=== PATIENT | female | born 1960 ===

== ENCOUNTER → 2020-05-24 15:11 | Outpatient (BNVA) | payer MEDICAID, SELFPAY | PROVIDERS: PCP Family Medicine; Visit Provider Internal Medicine | DX: R05 Cough (principal); J45.909 Unspecified asthma, uncomplicated | CPT/HCPCS: 99212 ==

== ENCOUNTER → 2020-12-25 15:16 | Outpatient (BNVA) | payer MEDICAID, SELFPAY | PROVIDERS: PCP Family Medicine; Visit Provider Internal Medicine | DX: J45.909 Unspecified asthma, uncomplicated (principal) | CPT/HCPCS: 99212 ==

== ENCOUNTER → 2021-08-02 12:53 | Outpatient (BNVA) | payer MEDICAID, SELFPAY | PROVIDERS: PCP Family Medicine; Visit Provider Internal Medicine | DX: J45.40 Moderate persistent asthma, uncomplicated (principal); J44.9 Chronic obstructive pulmonary disease, unspecified; R05.9 Cough, unspecified; Z79.4 Long term (current) use of insulin; Z79.899 Other long term (current) drug therapy | CPT/HCPCS: 99212 ==

== ENCOUNTER 2021-09-17 14:18 | Outpatient (REF) | payer MEDICAID, SELFPAY ==
--- NOTE | ~2021-09-17 | XR_ITS ---
EXAMINATION: XR KNEE, LEFT CLINICAL INFORMATION: Pain in left knee COMPARISON: 03/19/2016 TECHNIQUE: Two views of the left knee. FINDINGS: No acute fracture or dislocation. Joint spaces and articular surfaces are relatively preserved. No joint effusion. Small quadriceps tendon enthesophytes. Soft tissues unremarkable. XR/XR knee LT 2V IMPRESSION: No acute findings. No significant degenerative changes.
== END 2021-09-17 14:19 | disposition home or self-care (01) ==
LOC: HO.XRAY 14:18
PROVIDERS: PCP Family Medicine; Visit Provider Family Medicine
DX: M25.562 Pain in left knee (principal)
CPT/HCPCS: 73560

== ENCOUNTER → 2022-02-27 13:24 | Outpatient (BNVA) | payer MEDICAID, SELFPAY | PROVIDERS: PCP Family Medicine; Visit Provider Internal Medicine | DX: J45.909 Unspecified asthma, uncomplicated (principal); R05.9 Cough, unspecified | CPT/HCPCS: 99212 ==

== ENCOUNTER 2022-10-02 13:48 | Outpatient (REF) | payer MEDICAID, SELFPAY ==
--- NOTE | ~2022-10-02 | US_ITS ---
EXAMINATION: US PELVIS CLINICAL INFORMATION: Follow-up right ovarian cyst; postmenopausal patient. COMPARISON: Pelvic ultrasound dated 10-17. TECHNIQUE: Ultrasound of the pelvis is performed using both transabdominal and transvaginal transducers along with Doppler. Transvaginal imaging is performed due to inadequate visualization transabdominally. FINDINGS: Uterus: The uterus is anteverted and anteflexed. The uterus measures 9.7 x 2.7 x 4.6 cm. Nabothian cysts are seen within the cervix. The double wall endometrial thickness is 6 mm. The uterus is smooth in contour and has normal myometrial echogenicity. No visible fibroid. Adnexa: Both ovaries are visualized. There is normal color flow to the adnexa. There is no ovarian torsion. There is no pelvic ascites or fluid collection. Right ovary measures 4.7 x 3.1 x 2.6 cm, volume 19.8 mL. Exophytic 1.6 cm and 1.4 cm dominant, simple follicles are noted. Left ovary measures 1.5 x 1.2 x 1.0 cm, volume 0.9. US/US pelvic and transvaginal IMPRESSION: 1. Nabothian cysts are seen within the cervix. 2. 1.3 cm and 1.4 cm simple cysts are noted of the right ovary. There is interim resolution of the previously noted 1.8 cm right ovarian cyst with calcifications. These are benign findings, which require no imaging follow-up.
== END 2022-10-02 13:49 | disposition home or self-care (01) ==
LOC: HO.US 13:48
PROVIDERS: PCP Family Medicine; Visit Provider Advanced Practice Midwife
DX: N83.201 Unspecified ovarian cyst, right side (principal)
CPT/HCPCS: 76830; 76856

== ENCOUNTER → 2022-10-08 13:47 | Outpatient (BNVA) | payer MEDICAID, SELFPAY | PROVIDERS: PCP Family Medicine; Visit Provider Internal Medicine | DX: J45.909 Unspecified asthma, uncomplicated (principal); R05.9 Cough, unspecified | CPT/HCPCS: 99212 ==

== ENCOUNTER 2022-10-14 14:54 | Outpatient (REF) | payer MEDICAID, SELFPAY ==
--- NOTE | ~2022-10-14 | MM_ITS ---
EXAMINATION: MM SCREENING DIGITAL BREAST TOMOSYNTHESIS, BILATERAL CLINICAL INFORMATION: Screening. Asymptomatic. The lifetime risk of breast cancer based on the Tyrer-Cuzick Model is 4%. COMPARISON: Mammography: 11/17/2017, 06/20/2015, 06/14/2015 TECHNIQUE: Digital breast tomosynthesis is performed in both the craniocaudal and mediolateral oblique views along with computer-aided detection (CAD). Synthesized 2D images are generated from the tomosynthesis. FINDINGS: There are scattered areas of fibroglandular density (ACR BI-RADS breast composition Category b). Breast tissue density is slightly decreased since prior imaging. Parenchymal pattern is similar to prior studies and there is no developing density or architectural abnormality. The axilla and skin contours are unremarkable. Again, there are scattered bilateral vascular calcifications. Left breast has new grouped probable benign relatively coarse calcifications mid upper outer quadrant. Patient will be recalled to obtain magnification views to fully characterize. MM/MM tomosynthesis screening BI IMPRESSION: Left: -New grouped relatively coarse calcifications mid upper outer quadrant left breast, possibly fibroadenomatous. Right: -No mammographic evidence of malignancy. ASSESSMENT: BI-RADS 0: Incomplete - Need Additional Imaging Evaluation RECOMMENDATION: 1. Additional views left breast (magnification CC, magnification ML). 2. Radiology department staff will contact the patient for additional imaging. This patient's information was entered into a reminder system with a target due date for their next mammogram.
== END 2022-10-14 14:55 | disposition home or self-care (01) ==
LOC: HO.MAMMO 14:54
PROVIDERS: PCP Family Medicine; Visit Provider Advanced Practice Midwife
DX: Z12.31 Encounter for screening mammogram for malignant neoplasm of breast (principal)
CPT/HCPCS: 77063; 77067

== ENCOUNTER 2022-10-18 08:48 | Outpatient (REF) | payer MEDICAID, SELFPAY ==
--- NOTE | ~2022-10-18 | MM_ITS ---
EXAMINATION: MM DIAGNOSTIC DIGITAL MAMMOGRAPHY, LEFT CLINICAL INFORMATION: Calcifications. COMPARISON: Mammography: 10/14/2022 and 11/17/2017 as well as studies dating back to 06/14/2015. TECHNIQUE: Digital mammography is performed in the following views: Spot magnification views of the left breast in craniocaudal and 90 degree mediolateral views. FINDINGS: There are scattered areas of fibroglandular density (ACR BI-RADS breast composition Category b). The calcifications within the upper outer aspect of the left breast appear indeterminate in nature with one grouping having pleomorphic calcifications with question soft tissue density and for which stereotactic core biopsy is recommended. Results are discussed with the patient at time of visit. Report called to referring provider's office by mammography center patient coordinator who spoke to Kimberley. MM/MM added views LT IMPRESSION: Indeterminate calcifications upper outer aspect of the left breast which stereotactic core biopsy is recommended. ASSESSMENT: BI-RADS 4: Suspicious RECOMMENDATION: Stereotactic core biopsy.
== END 2022-10-18 08:49 | disposition home or self-care (01) ==
LOC: HO.MAMMO 08:48
PROVIDERS: Visit Provider Advanced Practice Midwife
DX: R92.1 Mammographic calcification found on diagnostic imaging of breast (principal)
CPT/HCPCS: 77065

== ENCOUNTER 2022-11-01 08:38 | Outpatient (REF) | payer MEDICAID, SELFPAY ==
--- NOTE | ~2022-11-01 | MM_ITS ---
EXAMINATION: STEREOTACTIC TOMOSYNTHESIS-GUIDED VACUUM-ASSISTED BREAST BIOPSY, LEFT SPECIMEN RADIOGRAPH, LEFT POST PROCEDURE DIGITAL MAMMOGRAM, LEFT CLINICAL INFORMATION: New calcifications mid upper outer left breast COMPARISON: Mammography 10/18/2022, 10/14/2022, 11/17/2017 TECHNIQUE/PROCEDURE: Informed consent was obtained from the patient after discussion of the benefits, risks, and alternatives to biopsy today. Patient appeared to understand. Gave opportunity for questions. Patient signed consent form. Hospital provided interpreter for the deaf assisted for the consent and throughout the procedure. BIOPSY TABLE: [employer] Prone Biopsy System. LESION: Calcifications mid upper outer left breast, possibly fibroadenomatous. LOCAL ANESTHESIA: 10 mL carbonated 1% lidocaine; 10 mL 1% lidocaine with epinephrine. DERMATOTOMY: Single skin jorge a dermatotomy performed. NEEDLE: [employer] 9-gauge vacuum assisted core biopsy device. APPROACH: Craniocaudal. TARGETING: Combination of digital breast tomosynthesis and stereotactic digital mammography used for targeting. CORES: 7. CLIP: [employer] T-shaped marker. SPECIMEN RADIOGRAPH: Specimen radiograph is taken in separate room using digital mammography. The index calcifications are in the excised cores. There are over 20 calcifications in the cores. POST PROCEDURE UNILATERAL DIGITAL MAMMOGRAM: The post biopsy mammogram is performed in separate room using separate digital mammography equipment from the biopsy procedure. CC and ML views views are obtained. There are scattered areas of fibroglandular density (breast composition category: b). The clip marker is in position. The calcifications are markedly decreased at the biopsy site. No gross hematoma. The patient tolerated the procedure well. No immediate complications. Home instructions reviewed with the patient. Final pathology results are pending. MM/MM stereotactic biopsy LT IMPRESSION: 1. Digital tomosynthesis-guided core biopsy left breast with clip placement. 2. Specimen radiograph taken and post procedure mammogram. There is satisfactory positioning of the biopsy clip. 3. Final pathology results pending. An addendum report will be issued.
[2022-11-01] MEDS: Lidocaine HCl 1 % 20 ML VIAL 9 ML SUBCUT (10:25)
[2022-11-01] MEDS: Lidocaine HCl 1%/Epi 1:100,000 10 ML VIAL SUBCUT (10:26)
[2022-11-01] MEDS: Sodium Bicarbonate 8.4% 50 MEQ/50 ML VIAL SUBCUT (10:27)
== END 2022-11-01 08:39 | disposition home or self-care (01) ==
LOC: HO.MAMMO 08:38
PROVIDERS: PCP Family Medicine; Visit Provider Surgery
DX: R92.8 Other abnormal and inconclusive findings on diagnostic imaging of breast (principal)
CPT/HCPCS: 19081; 88305; 99202; A4648

== ENCOUNTER → 2022-11-08 10:56 | Outpatient (BNVA) | payer MEDICAID, SELFPAY | PROVIDERS: PCP Family Medicine; Visit Provider Surgery | DX: R92.8 Other abnormal and inconclusive findings on diagnostic imaging of breast (principal); Z98.890 Other specified postprocedural states | CPT/HCPCS: 99212 ==

== ENCOUNTER 2022-11-28 14:27 | Outpatient (REF) | payer MEDICAID, SELFPAY ==
--- NOTE | ~2022-11-28 | US_ITS ---
EXAMINATION: US RETROPERITONEAL LIMITED (RENAL ONLY) CLINICAL INFORMATION: Acute kidney failure. COMPARISON: Ultrasound abdomen limited 09/08/2015. CT abdomen and pelvis 07/15/2015. TECHNIQUE: Real-time imaging of the kidneys. FINDINGS: RIGHT KIDNEY: 9.8 x 3.7 x 4.4 cm (SAG x AP x TRV). The kidney is normal in size, contour, and echogenicity. Renal cortical thickness is normal. No calculi or focal parenchymal lesions. Mild pelviectasis without christopher hydronephrosis. LEFT KIDNEY: 9.5 x 4.1 x 4.0 cm (SAG x AP x TRV). The kidney is normal in size, contour, and echogenicity. Renal cortical thickness is normal. No hydronephrosis. Benign-appearing renal cyst measuring 0.5 cm. No follow up imaging is recommended. 3 mm nonobstructing lower pole renal stone. US/US renal BI IMPRESSION: 1. Mild right pelviectasis without christopher hydronephrosis. 2. 3 mm nonobstructing left lower pole renal stone.
== END 2022-11-28 14:28 | disposition home or self-care (01) ==
LOC: HO.US 14:27
PROVIDERS: PCP Family Medicine; Visit Provider Family Medicine
DX: N17.8 Other acute kidney failure (principal)
CPT/HCPCS: 76775

== ENCOUNTER 2022-12-31 15:40 | Outpatient (REF) | payer MEDICAID, SELFPAY ==
[2022-12-31 17:58] LABS: Alanine Aminotransferase 21 U/L (0-31); Albumin Level 4.6 g/dL (3.5-5.0); Alkaline Phosphatase 79 U/L (39-117); Anion Gap 22 (12-20); Aspartate Amino Transferase 21 U/L (5-31); Bilirubin Total 0.4 mg/dL (0.0-1.0); Blood Urea Nitrogen 47 mg/dL (9-16); Calcium 9.5 mg/dL (8.4-10.2); Carbon Dioxide 20 mmol/L (22-29); Chloride 99 mmol/L (96-108); Estimated Glomerular Filt Rate 21; Glucose Random 94 mg/dL (60-115); Magnesium 1.9 mg/dL (1.6-2.6); Potassium 5.6 mmol/L (3.3-5.1); Sodium 135 mmol/L (135-145); Total Protein 8.4 g/dL (6.5-8.0)
== END 2022-12-31 15:41 | disposition home or self-care (01) ==
LOC: HO.CHCLDS 15:40
PROVIDERS: Visit Provider Family Medicine
DX: I12.9 Hypertensive chronic kidney disease with stage 1 through stage 4 chronic kidney disease, or unspecified chronic kidney disease (principal); N18.9 Chronic kidney disease, unspecified
CPT/HCPCS: 36415; 80053; 83735

== ENCOUNTER 2023-01-14 12:59 | Outpatient (REF) | payer MEDICAID, SELFPAY ==
[2023-01-14 15:26] LABS: Anion Gap 13 (12-20); Blood Urea Nitrogen 16 mg/dL (9-16); Calcium 9.2 mg/dL (8.4-10.2); Carbon Dioxide 26 mmol/L (22-29); Chloride 92 mmol/L (96-108); Estimated Glomerular Filt Rate 34; Glucose Random 193 mg/dL (60-115); Potassium 4.8 mmol/L (3.3-5.1); Sodium 126 mmol/L (135-145)
== END 2023-01-14 13:00 | disposition home or self-care (01) ==
LOC: HO.CHCLNP 12:59
PROVIDERS: Visit Provider Family Medicine
DX: I12.9 Hypertensive chronic kidney disease with stage 1 through stage 4 chronic kidney disease, or unspecified chronic kidney disease (principal); N18.9 Chronic kidney disease, unspecified
CPT/HCPCS: 36415; 80048

== ENCOUNTER 2023-01-15 14:29 | Outpatient (REF) | payer MEDICAID, SELFPAY ==
[2023-01-15 17:41] LABS: MANUAL DIFF FLAG NO
[2023-01-15 17:51] LABS: Basophils Percent Auto 0.5 % (0-2); Eosinophils Absolute Auto 0.1 X10*3/uL (0.0-0.4); Eosinophils Percent Auto 1.2 % (0-4); Hematocrit 30.4 % (37.0-47.0); Imm Gran Abs Auto 0.03 X10*3/uL (0.00-0.03); Imm Gran Pct Auto 0.5 % (0.0-0.4); Lymphocytes Absolute Auto 1.1 X10*3/uL (1.2-4.9); Mean Corpuscular HGB Conc 32.9 g/dl (31.0-35.0); Mean Corpuscular Hemoglobin 29.3 pg (27.0-33.0); Mean Corpuscular Volume 89.1 fL (80.0-98.0); Mean Platelet Volume 9.4 fL (9.4-12.3); Monocytes Absolute Auto 0.3 X10*3/uL (0.1-1.2); Neutrophils Absolute Auto 4.5 x10*3/uL (2.0-8.3); Neutrophils Percent Auto 74.8 % (45-73); Platelet Count 188 X10*3/uL (160-400); Red Blood Count 3.41 X10*6/uL (4.20-5.50); Red Cell Distribution Width 13.5 % (11.0-16.0)
[2023-01-15 17:53] LABS: Prothrombin Time 11.8 SEC (11.1-13.3)
[2023-01-15 17:55] LABS: Partial Thromboplastin Time 35.2 SEC (26.0-36.4)
== END 2023-01-15 14:30 | disposition home or self-care (01) ==
LOC: HO.CHCLDS 14:29
PROVIDERS: Visit Provider General Practice
DX: R23.3 Spontaneous ecchymoses (principal)
CPT/HCPCS: 36415; 85025; 85610; 85730

== ENCOUNTER 2023-04-29 13:12 | Outpatient (AMB) | payer MEDICAID, SELFPAY ==
[2023-04-29 13:26] VITALS: BP 120/60; PULSE 93; O2SAT 98; BMI 37.9
--- NOTE | 2023-04-29 13:26 | A.OFFVIS_ITS ---
Intake Vital Signs 04/29/23 13:26 Height 4 ft 7 in Weight 163 lb BMI 37.9 BP 120/60 Blood Pressure Location Lt brachial Position Sitting Pulse 93 Pulse Source Pulse Oximeter Pulse Oximetry (%) 98 Oxygen Delivery Method Room Air Intake Visit Reasons: COPD Intake Note: pt is here for follow up and states she is starting a cold . Self Sealing Fuel Tank Builder Required: Yes Self Sealing Fuel Tank Builder Name: za Allergies No Known Allergies [No Known Allergies*] Allergy (Verified 04/29/23 13:31) Medication List - Last Reconciled 04/29/23 by José Reyez MD albuterol sulfate 90 mcg/actuation (ProAir HFA) 2 puffs inhalation Q6H PRN 60 days atorvastatin 20 mg PO BEDTIME benzonatate 200 mg PO TID cholecalciferol (vitamin D3) 50 mcg PO DAILY clonazepam 0.25 mg PO BID cyproheptadine 4 mg PO BEDTIME dulaglutide (Trulicity) 0.75 mg subcut QWEEK fluticasone propionate 110 mcg/actuation (Flovent HFA) 2 puffs inhalation BID 30 days furosemide 20 mg PO BID gabapentin 300 mg PO TID hydroxyzine pamoate 25 mg PO TID lactulose 20 grams PO TID lisinopril 2.5 mg PO DAILY loratadine 10 mg PO DAILY metformin 500 mg PO BID sertraline 150 mg PO DAILY spironolactone 25 mg PO BID Do you need a note to return to daycare/school/sports/work: No HPI COPD HPI Details 62 YEARS OLD POLISH-SPEAKING FEMALE HER E FOR FOLLOW-UP AFTER 6 MONTHS. BRONCHIAL ASTHMA HAS REMAINED UNDER GOOD. CONTROL WITHOUT ANY NEW EXACERBATION USES FLOVENT-110 2 PUFFS B.I.D. VERY REGULARLY. AND HAS TO USE ALBUTEROL ONLY ONCE IN A WHILE. LUCKILY SHE HAS HAD NO INFECTION. [facility] Medical History Asthma Cough Surgical History H/O section Family History Son Lung cancer Daughter Pelvic cancer, Onset Age: 23 Social History Alcohol intake: never Patient Tobacco Use Status: Never used Tobacco Female Reproductive History Menstrual Age of Menarche: 12 Review of Systems Const All systems reviewed & are unremarkable except as noted in HPI and below ENT Reports nasal congestion (mild off and on ) and Reports neck pain (mild ) Card Denies chest pain, Denies irregular heart rhythm and Denies leg edema Resp Reports as per HPI GI Reports no additional complaints Musc Reports back pain (mild) and Reports neck pain (mild ) Neuro Reports no additional complaints Psych Reports no additional complaints Physical Exam Const General: comfortable, no acute distress, alert and awake Orientation/consciousness: patient oriented x3 HEENT Head: Yes normal to inspection General nose exam: No nasal polyps present and No nasal discharge present Face and sinus: Yes sinuses nontender Mouth: oropharynx normal Throat: Yes posterior oropharynx normal Eyes General: appearance normal, both eyes and all related structures Neck Neck: Yes normal visual inspection, Yes no lymphadenopathy, Yes trachea midline, Yes torticollis (Moderate, chronic) and Yes no JVD Thyroid: Thyroid normal Chest Chest palpation & inspection: normal inspection of the chest, normal palpation of entire chest wall and no tenderness Resp Other: Percussion note is resonant, she has good breath sounds on both sides, no wheezes or rhonchi are heard. Cardio Palpation: normal PMI Rate: regular rate Rhythm: regular rhythm Heart sounds: no gallops and no murmurs GI Palpation (GI): Soft to palpation, nontender, No hepatosplenomegaly present and no masses Auscultation: normal bowel sounds Back/Spine/Pelvis Thoracic/Lumbar Spine: thoracic and lumbar spine normal to inspection and thoraco-lumbar ROM limited Skin General skin exam: no rashes or lesions noted Neuro General: patient oriented x3 and no focal motor deficits Cranial nerves: Yes CN's II-XII intact bilaterally Extrem General: Yes normal to inspection, Yes no clubbing, cyanosis or edema and Yes no calf tenderness Psych Appearance: grossly normal and well kempt Speech and movement: Normal speech and movement present Assessment & Plan Assessment & Plan (1) Asthma: Comment: Asthma moderate , recurrent , well controlled and has been stable, [place] : FLOVENT-110 2 PUFFS B.I.D. PROAIR HFA 2 PUFFS Q 4-6 HOURS ONLY P.R.N. Scripts are renewed. Code(s): J45.909 - Unspecified asthma, uncomplicated (2) Cough: Comment: Chronic , mild, sec to Asthma Variant , Not very bothersome at present .No need of any cough meds . Code(s): R05 - Cough Medications: Refilled fluticasone propionate 110 mcg/actuation (Flovent HFA) 2 puffs inhalation BID 12 grams 5RF asthma 30 days albuterol sulfate 90 mcg/actuation (ProAir HFA) 2 puffs inhalation Q6H PRN 8.5 grams 2RF asthma 60 days Coding Level of Care Code Est Pt Level 3 (02723) Diagnoses Asthma J45.909 Cough R05
== END 2023-04-29 13:49 | disposition home or self-care (01) ==
PROVIDERS: PCP Family Medicine; Visit Provider Internal Medicine
DX: J45.909 Unspecified asthma, uncomplicated (principal); R05.9 Cough, unspecified
CPT/HCPCS: 99213

== ENCOUNTER → 2023-04-29 13:12 | Outpatient (BNVA) | payer MEDICAID, SELFPAY | PROVIDERS: PCP Family Medicine; Visit Provider Internal Medicine | DX: J45.909 Unspecified asthma, uncomplicated (principal); R05.9 Cough, unspecified | CPT/HCPCS: 99212 ==

== ENCOUNTER 2023-08-14 14:17 | Outpatient (REF) | payer MEDICAID, SELFPAY ==
[2023-08-17 06:44] LABS: TS Negative Control Passed; TS Panel A 0; TS Panel B 1; TS Positive Control Passed; TSpotTB Negative (Negative)
== END 2023-08-14 14:18 | disposition home or self-care (01) ==
LOC: HO.CHCLDS 14:17
PROVIDERS: Visit Provider Family Medicine
DX: Z11.1 Encounter for screening for respiratory tuberculosis (principal)
CPT/HCPCS: 36415; 86481

== ENCOUNTER 2023-10-23 10:02 | Outpatient (AMB) | payer MEDICARE, MEDICAID, SELFPAY ==
[2023-10-23 10:20] VITALS: BP 110/68; PULSE 80; O2SAT 95; BMI 37.7
--- NOTE | 2023-10-23 10:20 | A.OFFVIS_ITS ---
Vital Signs 10/23/23 10:20 Height 4 ft 7 in Weight 162 lb 0.636 oz BMI 37.7 BP 110/68 Blood Pressure Location Lt brachial Position Sitting Pulse 80 Pulse Source Pulse Oximeter Pulse Oximetry (%) 95 Oxygen Delivery Method Room Air Intake Visit Reasons: copd Intake Note: pt is here for follow up and states her breathing is good and feeling well. 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 Required: No Allergies No Known Allergies [No Known Allergies*] Allergy (Verified 10/23/23 10:46) Medication List - Last Reconciled 10/23/23 by José Reyez MD albuterol sulfate 90 mcg/actuation (ProAir HFA) 2 puffs inhalation Q6H PRN 60 days atorvastatin 20 mg PO BEDTIME benzonatate 200 mg PO TID cholecalciferol (vitamin D3) 50 mcg PO DAILY clonazepam 0.25 mg PO BID cyproheptadine 4 mg PO BEDTIME dulaglutide (Trulicity) 0.75 mg subcut QWEEK fluticasone propionate 110 mcg/actuation (Flovent HFA) 2 puffs inhalation BID 30 days furosemide 20 mg PO BID gabapentin 300 mg PO TID hydroxyzine pamoate 25 mg PO TID lactulose 20 grams PO TID lisinopril 2.5 mg PO DAILY loratadine 10 mg PO DAILY metformin 500 mg PO BID sertraline 150 mg PO DAILY spironolactone 25 mg PO BID Do you need a note to return to daycare/school/sports/work: No HPI HPI copd: Details: This 63 years old [place]-speaking female is here for her 6 months follow-up for bronchial asthma 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 Claims that she is feeling fine and does not have any active symptoms. She has only occasional cough or with some wheezing but she gets better by using albuterol. Normally she continues to use her maintenance treatment with Flovent-1102 puffs b.i.d. She has mild intermittent nasal congestion and uses loratadine 10 mg once a day p.r.n.. [facility] Medical History (Updated 10/23/23 @ 10:52 by José Reyez MD) Allergic rhinitis Asthma Cough Surgical History H/O section Family History Son Lung cancer Daughter Pelvic cancer, Onset Age: 23 Social History Alcohol intake: never Patient Tobacco Use Status: Never used Tobacco Female Reproductive History Menstrual Age of Menarche: 12 Review of Systems Const All systems reviewed & are unremarkable except as noted in HPI and below ENT Reports nasal congestion (mild off and on ) and Reports neck pain (mild ) Card Denies chest pain, Denies irregular heart rhythm and Denies leg edema Resp Reports as per HPI GI Reports no additional complaints Musc Reports back pain (mild) and Reports neck pain (mild ) Neuro Reports no additional complaints Psych Reports no additional complaints Physical Exam Vital Signs: Last Vital Signs Pulse 80 10/23/23 10:20 BP 110/68 10/23/23 10:20 Pulse Ox 95 10/23/23 10:20 Oxygen Delivery Method Room Air 10/23/23 10:20 BMI result Body Mass Index 37.7 Const General: comfortable, no acute distress, alert and awake Orientation/consciousness: patient oriented x3 HEENT Head: Yes normal to inspection General nose exam: No nasal polyps present and No nasal discharge present Face and sinus: Yes sinuses nontender Mouth: oropharynx normal Throat: Yes posterior oropharynx normal Eyes General: appearance normal, both eyes and all related structures Neck Neck: Yes normal visual inspection, Yes no lymphadenopathy, Yes trachea midline, Yes torticollis (Moderate, chronic) and Yes no JVD Thyroid: Thyroid normal Chest Chest palpation & inspection: normal inspection of the chest, normal palpation of entire chest wall and no tenderness Resp Other: Percussion note is resonant, she has good breath sounds on both sides, no wheezes or rhonchi are heard. Cardio Palpation: normal PMI Rate: regular rate Rhythm: regular rhythm Heart sounds: no gallops and no murmurs GI Palpation (GI): Soft to palpation, nontender, No hepatosplenomegaly present and no masses Auscultation: normal bowel sounds Back/Spine/Pelvis Thoracic/Lumbar Spine: thoracic and lumbar spine normal to inspection and thoraco-lumbar ROM limited Skin General skin exam: no rashes or lesions noted Neuro General: patient oriented x3 and no focal motor deficits Cranial nerves: Yes CN's II-XII intact bilaterally Extrem General: Yes normal to inspection, Yes no clubbing, cyanosis or edema and Yes no calf tenderness Psych Appearance: grossly normal and well kempt Speech and movement: Normal speech and movement present Assessment & Plan Assessment & Plan (1) Asthma: Comment: Asthma moderate , recurrent , well controlled and has been stable, Code(s): J45.909 - Unspecified asthma, uncomplicated Category: Medical Plan: [place] : FLOVENT-110 2 PUFFS B.I.D. PROAIR HFA 2 PUFFS Q 4-6 HOURS ONLY P.R.N. (2) Allergic rhinitis: Comment: She does have mild intermittent nasal congestion suggesting a very mild allergic rhinitis. This may be the cause of intermittent cough. Code(s): J30.9 - Allergic rhinitis, unspecified Category: Medical Plan: Advise that she can use loratadine 10 mg once a day but only p.r.n. Coding Level of Care Code Est Pt Level 3 (11308) Diagnoses Asthma J45.909 Allergic rhinitis J30.9
== END 2023-10-23 10:47 | disposition home or self-care (01) ==
PROVIDERS: PCP Family Medicine; Visit Provider Internal Medicine
DX: J45.909 Unspecified asthma, uncomplicated (principal); J30.9 Allergic rhinitis, unspecified
CPT/HCPCS: 99213

== ENCOUNTER → 2023-10-23 10:02 | Outpatient (BNVA) | payer MEDICARE, MEDICAID, SELFPAY | PROVIDERS: PCP Family Medicine; Visit Provider Internal Medicine | DX: J45.909 Unspecified asthma, uncomplicated (principal) | CPT/HCPCS: 99212 ==

== ENCOUNTER 2024-04-19 13:48 | Outpatient (AMB) | payer MEDICARE, MEDICAID, SELFPAY ==
[2024-04-19 13:55] VITALS: BP 102/60; PULSE 80; O2SAT 95; BMI 38.3
--- NOTE | 2024-04-19 13:55 | A.OFFVIS_ITS ---
Vital Signs 04/19/24 13:55 Height 4 ft 7 in Weight 165 lb BMI 38.3 BP 102/60 Blood Pressure Location Lt brachial Position Sitting Pulse 80 Pulse Source Pulse Oximeter Pulse Oximetry (%) 95 Oxygen Delivery Method Room Air Intake Visit Reasons: copd Intake Note: pt is here for follow up and states she is good. 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 Allergies No Known Allergies [No Known Allergies*] Allergy (Verified 04/19/24 14:13) Medication List - Last Reconciled 04/19/24 by José Reyez MD albuterol sulfate 90 mcg/actuation (ProAir HFA) 2 puffs inhalation Q6H PRN 60 days atorvastatin 20 mg PO BEDTIME benzonatate 200 mg PO TID cholecalciferol (vitamin D3) 50 mcg PO DAILY clonazepam 0.25 mg PO BID cyproheptadine 4 mg PO BEDTIME dulaglutide (Trulicity) 0.75 mg subcut QWEEK fluticasone propionate 110 mcg/actuation (Flovent HFA) 2 puffs inhalation BID 30 days furosemide 20 mg PO BID gabapentin 300 mg PO TID hydroxyzine pamoate 25 mg PO TID lactulose 20 grams PO TID lisinopril 2.5 mg PO DAILY loratadine 10 mg PO DAILY metformin 500 mg PO BID sertraline 150 mg PO DAILY spironolactone 25 mg PO BID Do you need a note to return to daycare/school/sports/work: No HPI HPI copd: Details: This 63 years old Polish-speaking female, comes after 6 months for follow-up, of her bronchial asthma/allergic rhinitis. She is happy and smiling. According to her CPA, she has very little cough or wheezing. She walks short distances without any shortness of breath. No nasal congestion. Overall feels well [facility] Medical History Allergic rhinitis Asthma Cough Surgical History H/O inguinal hernia repair History of appendectomy H/O left breast biopsy H/O section Family History Son Lung cancer Daughter Pelvic cancer, Onset Age: 23 Social History Alcohol intake: never Patient Tobacco Use Status: Never used Tobacco Female Reproductive History Menstrual Age of Menarche: 12 Review of Systems Const All systems reviewed & are unremarkable except as noted in HPI and below ENT Reports nasal congestion (mild off and on ) and Reports neck pain (mild ) Card Denies chest pain, Denies irregular heart rhythm and Denies leg edema Resp Reports as per HPI GI Reports no additional complaints Musc Reports back pain (mild) and Reports neck pain (mild ) Neuro Reports no additional complaints Psych Reports no additional complaints Physical Exam Vital Signs: Last Vital Signs Pulse 80 04/19/24 13:55 BP 102/60 04/19/24 13:55 Pulse Ox 95 04/19/24 13:55 Oxygen Delivery Method Room Air 04/19/24 13:55 BMI result Body Mass Index 38.3 Const General: comfortable, no acute distress, alert and awake Orientation/consciousness: patient oriented x3 HEENT Head: Yes normal to inspection General nose exam: No nasal polyps present and No nasal discharge present Face and sinus: Yes sinuses nontender Mouth: oropharynx normal Throat: Yes posterior oropharynx normal Eyes General: appearance normal, both eyes and all related structures Neck Neck: Yes normal visual inspection, Yes no lymphadenopathy, Yes trachea midline, Yes torticollis (Moderate, chronic) and Yes no JVD Thyroid: Thyroid normal Chest Chest palpation & inspection: normal inspection of the chest, normal palpation of entire chest wall and no tenderness Resp Other: Percussion note is resonant, she has good breath sounds on both sides, no wheezes or rhonchi are heard. Cardio Palpation: normal PMI Rate: regular rate Rhythm: regular rhythm Heart sounds: no gallops and no murmurs GI Palpation (GI): Soft to palpation, nontender, No hepatosplenomegaly present and no masses Auscultation: normal bowel sounds Back/Spine/Pelvis Thoracic/Lumbar Spine: thoracic and lumbar spine normal to inspection and thoraco-lumbar ROM limited Skin General skin exam: no rashes or lesions noted Neuro General: patient oriented x3 and no focal motor deficits Cranial nerves: Yes CN's II-XII intact bilaterally Extrem General: Yes normal to inspection, Yes no clubbing, cyanosis or edema and Yes no calf tenderness Psych Appearance: grossly normal and well kempt Speech and movement: Normal speech and movement present Assessment & Plan Assessment & Plan (1) Allergic rhinitis: Comment: She does have mild intermittent nasal congestion suggesting a very mild allergic rhinitis. This is well controlled at this time. Code(s): J30.9 - Allergic rhinitis, unspecified Category: Medical Plan: Continue to use loratadine 10 mg once a day but only p.r.n. (2) Asthma: Comment: Asthma moderate , recurrent , well controlled and has been stable, Code(s): J45.909 - Unspecified asthma, uncomplicated Category: Medical Plan: Continue Flovent -110 2 puffs b.i.d. Use albuterol HFA 2 puffs Q 4-6 hours only p.r.n. Coding Level of Care Code Est Pt Level 3 (22141) Diagnoses Allergic rhinitis J30.9 Asthma J45.909
== END 2024-04-19 14:15 | disposition home or self-care (01) ==
PROVIDERS: PCP Family Medicine; Visit Provider Internal Medicine
DX: J30.9 Allergic rhinitis, unspecified (principal); J45.909 Unspecified asthma, uncomplicated
CPT/HCPCS: 99213

== ENCOUNTER → 2024-04-19 13:48 | Outpatient (BNVA) | payer MEDICARE, MEDICAID, SELFPAY | PROVIDERS: PCP Family Medicine; Visit Provider Internal Medicine | DX: J45.909 Unspecified asthma, uncomplicated (principal) | CPT/HCPCS: 99212 ==

== ENCOUNTER 2025-02-10 13:53 | Outpatient (AMB) | payer OTHER, SELFPAY ==
[2025-02-10 13:54] VITALS: BP 127/62; PULSE 84; O2SAT 98; BMI 38.1
--- NOTE | 2025-02-10 13:54 | A.OFFVIS_ITS ---
Vital Signs 02/10/25 13:54 Height 4 ft 7 in Weight 164 lb BMI 38.1 BP 127/62 Blood Pressure Location Lt brachial Position Sitting Pulse 84 Pulse Source Pulse Oximeter Pulse Oximetry (%) 98 Oxygen Delivery Method Room Air Intake Visit Reasons: COPD Intake Note: Patient is here for a follow up on COPD Allergies No Known Allergies (No Known Allergies*) Allergy (Verified 02/10/25 14:10) Medication List - Last Reconciled 02/10/25 by José Reyez MD albuterol sulfate 90 mcg/actuation (ProAir HFA) 2 puffs inhalation Q6H PRN 60 days atorvastatin 20 mg PO BEDTIME benzonatate 200 mg PO TID cholecalciferol (vitamin D3) 50 mcg PO DAILY clonazepam 0.25 mg PO BID cyproheptadine 4 mg PO BEDTIME dulaglutide (Trulicity) 0.75 mg subcut QWEEK fluticasone propionate 110 mcg/actuation (Flovent HFA) 2 puffs inhalation BID 30 days furosemide 20 mg PO BID gabapentin 300 mg PO TID hydroxyzine pamoate 25 mg PO TID lactulose 20 grams PO TID lisinopril 2.5 mg PO DAILY loratadine 10 mg PO DAILY metformin 500 mg PO BID sertraline 150 mg PO DAILY spironolactone 25 mg PO BID Do you need a note to return to daycare/school/sports/work: No HPI HPI COPD: Details: Denae, is 64 years old female with some cognitive impairment and also language issue. 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 Denies any acute cough or wheezing. Continues to use Flovent-1102 puffs b.i.d., according to SIGNS CLEANER she hardly needs to use albuterol. Luckily she has had no acute. Exacerbation in the last 6 months [facility] Medical History Allergic rhinitis Asthma Cough Surgical History H/O inguinal hernia repair History of appendectomy H/O left breast biopsy H/O section Family History Son Lung cancer Daughter Pelvic cancer, Onset Age: 23 Social History Alcohol intake: never Patient Tobacco Use Status: Never used Tobacco Female Reproductive History Menstrual Age of Menarche: 12 Review of Systems Const All systems reviewed & are unremarkable except as noted in HPI and below ENT Reports nasal congestion (mild off and on ) and Reports neck pain (mild ) Card Denies chest pain, Denies irregular heart rhythm and Denies leg edema Resp Reports as per HPI GI Reports no additional complaints Musc Reports back pain (mild) and Reports neck pain (mild ) Neuro Reports no additional complaints Psych Reports no additional complaints Physical Exam Vital Signs: Last Vital Signs Pulse 84 02/10/25 13:54 BP 127/62 02/10/25 13:54 Pulse Ox 98 02/10/25 13:54 Oxygen Delivery Method Room Air 02/10/25 13:54 BMI result Body Mass Index 38.1 Const General: comfortable, no acute distress, alert and awake Orientation/consciousness: patient oriented x3 HEENT Head: Yes normal to inspection General nose exam: No nasal polyps present and No nasal discharge present Face and sinus: Yes sinuses nontender Mouth: oropharynx normal Throat: Yes posterior oropharynx normal Eyes General: appearance normal, both eyes and all related structures Neck Neck: Yes normal visual inspection, Yes no lymphadenopathy, Yes trachea midline, Yes torticollis (Moderate, chronic) and Yes no JVD Thyroid: Thyroid normal Chest Chest palpation & inspection: normal inspection of the chest, normal palpation of entire chest wall and no tenderness Resp Other: Percussion note is resonant, she has good breath sounds on both sides, no wheezes or rhonchi are heard. Cardio Palpation: normal PMI Rate: regular rate Rhythm: regular rhythm Heart sounds: no gallops and no murmurs GI Palpation (GI): Soft to palpation, nontender, No hepatosplenomegaly present and no masses Auscultation: normal bowel sounds Back/Spine/Pelvis Thoracic/Lumbar Spine: thoracic and lumbar spine normal to inspection and thoraco-lumbar ROM limited Skin General skin exam: no rashes or lesions noted Neuro General: patient oriented x3 and no focal motor deficits Cranial nerves: Yes CN's II-XII intact bilaterally Extrem General: Yes normal to inspection, Yes no clubbing, cyanosis or edema and Yes no calf tenderness Psych Appearance: grossly normal and well kempt Speech and movement: Normal speech and movement present Assessment & Plan Assessment & Plan (1) Cough: Comment: Chronic , mild, sec to Asthma Variant , Not very bothersome at present .No need of any cough meds . Code(s): R05 - Cough Category: Medical Plan: No need of any cough medicine. She does have benzonatate it Perles 200 mg to be used t.i.d. p.r.n.. (2) Asthma: Comment: Asthma moderate , recurrent , well controlled and has been stable, Code(s): J45.909 - Unspecified asthma, uncomplicated Category: Medical Plan: Continue using Flovent-1102 puffs b.i.d. And albuterol HFA 2 puffs Q 6 hours p.r.n. (3) Allergic rhinitis: Comment: She does have mild intermittent nasal congestion suggesting a very mild allergic rhinitis. This is well controlled at this time. Code(s): J30.9 - Allergic rhinitis, unspecified Category: Medical Plan: May use OTC antihistaminic agents such as loratadine 10 mg once a day but only p.r.n. Coding Level of Care Code Est Pt Level 3 (79037) Diagnoses Cough R05 Asthma J45.909 Allergic rhinitis J30.9
--- OUTSIDE RECORDS SUMMARY | 2025-02-10 17:46 | XMS_ITS | Encounter Summary ---
Author Organization [employer] Address [address] [place] [address] [address] [place] [address] Care Team Providers Care Senior Environmental Consultant Name Role Phone Carmela Landeros MD Primary Care Provider [phone] Reason for Visit * Reason Comments Med Refill Encounter Details Date Type Department Care Team ([facility] st Contact Info) Description 01/24/2025 Refill [facility] PEDS [address] [place], [place] [id number] Jon Camp MD [address] [place] [address] Social History Tobacco Use Types Packs/Day Years Used Date Smoking Tobacco: Every Day Cigarettes Passive Smoke Exposure: Never Smokeless Tobacco: Former Alcohol Use Standard Drinks/Week Comments Not Currently 0 (1 standard drink = 0.6 oz pur e alcohol) Depression Answer Date Recorded Patient Health Questionnaire-9 Score 16 02/23/2024 Patient Health Questionnaire-9 Score 16 02/23/2024 Last PHQ-9: Questionnaire Data Not on file 0 02/23/2024 Housing Stability Answer Date Recorded What is your housing situation today? I have sabrina torres 09/30/[address] you li ve. Do you have problems with any of the following? None of the above 09/30/2024 Food Insecurity Answer Date Recorded Within the past 12 months, y ou worried that your food would run out before you got money to buy more: Never True 09/30/2024 Within the past 12 months,th e food you bought just didn't last and you didn't have enough money to get more: Never True 06/2024 Transportation Answer Date Recorded In the past 12 months, has l ack of transportation kept you from medical appts, meetings, work or from getting things needed for daily living? No 09/30/2024 Utilities Answer Date Recorded In the past 12 months, has t he electric, gas, oil or water company threatened to shut off services in your home? No 09/30/2024 Depression Answer Date Recorded Patient Health Questionnaire-2 Score 3 02/23/2024 Internet Access Answer Date Recorded Internet Access Q1 Yes 09/30/2024 Internet Access Q2 Not on file 09/30/2024 Comments Unknown Sex and Gender Information Value Date Recorded Sex Assigned at Female 04/01/2022 10:29 AM EDT Legal Sex Female 10:29 AM EDT Gender Identity Female 04/01/2022 10:29 AM EDT Sexual Orientation Straight 04/01/2022 10 :29 AM EDT documented as of this encounter Plan of Treatment Upcoming Encounters Date Type Department Care Team (Late st Contact Info) Description 04/06/2025 2:15 PM EST Clinical Support [facility] PEDS [address] [place] [address] Kendal Rothman, VENICE [address] [place] [address] documented as of this encounter Visit Diagnoses Not on filedocumented in this encounter Additional Health Concerns Assessment Noted Time PHQ-9 Depression Total Score: 16 024 3:27 PM EDT documented as of this encounter Care Teams Senior Environmental Consultant Relationship Specialty Start Date End Date Carmela Landeros MD [address] [place] [address] PCP - General Family Medicine 03/01/21 Tae Urbina MD Consulting Physician Nephrology 12/22/18 José Reyez MD Consulting Physician Pulmonary Disease 12/22/18 Dr. Levar Oates MD [address] [place] [address] Psychiatrist 09/30/24 documented as of this encounter
--- OUTSIDE RECORDS SUMMARY | 2025-02-10 17:46 | XMS_ITS | Encounter Summary ---
Author Organization [employer] Address [address] [place] [address] [address] [place] [address] Care Team Providers Care Night Supervisor Name Role Phone Carmela Landeros MD Primary Care Provider [phone] Reason for Visit * Reason Onset Date Comments FYI 06/05/2023 Encounter Details Date Type Department Care Team ([facility] st Contact Info) Description 06/05/2023 Telephone [facility] MED [facility] PEDS [address] [place], [place] [id number] Carmela Landeros MD [address] [place] [address] FYI Social History Tobacco Use Types Packs/Day Years Used Date Smoking Tobacco: Former Passive Smoke Exposure: Never Smokeless Tobacco: Former Alcohol Use Standard Drinks/Week Comments Not Currently 0 (1 standard drink = 0.6 oz pur e alcohol) Depression Answer Date Recorded Patient Health Questionnaire-9 Score 4 02/19/2023 Housing Stability Answer Date Recorded What is your housing situation today? I have sabrina torres 03/20/[address] you li ve. Do you have problems with any of the following? None of the above 03/20/2023 Food Insecurity Answer Date Recorded Within the past 12 months, y ou worried that your food would run out before you got money to buy more: Never True 03/20/2023 Within the past 12 months,th e food you bought just didn't last and you didn't have enough money to get more: Never True Transportation Answer Date Recorded In the past 12 months, has l ack of transportation kept you from medical appts, meetings, work or from getting things needed for daily living? No 03/20/2023 Utilities Answer Date Recorded In the past 12 months, has t he electric, gas, oil or water company threatened to shut off services in your home? No 03/20/2023 Depression Answer Date Recorded Patient Health Questionnaire-2 Score 1 02/19/2023 Comments Unknown Sex and Gender Information Value Date Recorded Sex Assigned at Female 04/01/2022 10:29 AM EDT Legal Sex Female 10:29 AM EDT Gender Identity Female 04/01/2022 10:29 AM EDT Sexual Orientation Straight 04/01/2022 10 :29 AM EDT documented as of this encounter Miscellaneous Notes * Telephone Encounter - Alice Paulson RN - 06/05/2023 2:06 PM EST Noted. * Telephone Encounter - Ashley Genao - 06/05/2023 1:30 PM EST Tc from [facility] with [facility] calling to advise PCP pt glucose was 441 with a BP of 160/80. Pt also had a fall last night. States pt has no injuries and was told by pt she feels fine. documented in this encounter Plan of Treatment Upcoming Encounters Date Type Department Care Team (Late st Contact Info) Description 04/06/2025 2:15 PM EST Clinical Support [facility] [address] [place] [address] Kendal Rothman RN [address] [place] [address] documented as of this encounter Visit Diagnoses Not on filedocumented in this encounter Additional Health Concerns Assessment Noted Time PHQ-9 Depression Total Score: 4 02/20/20 23 10:24 AM EDT documented as of this encounter Care Teams Night Supervisor Relationship Specialty Start Date End Date Carmela Landeros MD [address] [place] [address] PCP - General Family Medicine 03/01/21 Tae Urbina MD Consulting Physician Nephrology 12/22/18 José Reyez MD Consulting Physician Pulmonary Disease 12/22/18 Dr. Levar Oates MD [address] [place] [address] Psychiatrist 09/30/24 documented as of this encounter
--- OUTSIDE RECORDS SUMMARY | 2025-02-10 17:46 | XMS_ITS | Encounter Summary ---
Author Organization [facility] Address [address] [place] [address] Phone Care Team Providers Care Network Relations Consultant Name Role Phone Carmela Landeros MD Primary Care Provider [phone] Encounter Details Date Type Department Care Team (Late st Contact Info) Description 08/16/2024 Documentation Only [facility] [place], [address] [place] [address] Coni Newman [address] [place] [address] Social History Tobacco Use Types Packs/Day Years Used Date Smoking Tobacco: Former Alcohol Use Standard Drinks/Week Comments No 0 (1 standard drink = 0.6 oz pur e alcohol) Comments Unknown Sex and Gender Information Value Date Recorded Sex Assigned at Not on file Legal Sex Female 4:33 PM EST Gender Identity Not on file Sexual Orientation Not on file documented as of this encounter Plan of Treatment Not on file documented as of this encounter Visit Diagnoses Not on filedocumented in this encounter Care Teams Network Relations Consultant Relationship Specialty Start Date End Date Carmela Landeros MD [address] [place] [address] PCP - General Family Medicine 12/18/20 documented as of this encounter
--- OUTSIDE RECORDS SUMMARY | 2025-02-10 17:46 | XMS_ITS | Encounter Summary ---
Author Organization [facility] Address [address] [place] [address] Phone Care Team Providers Care Maintenance Shop Technician Name Role Phone Carmela Landeros MD Primary Care Provider [phone] Encounter Details Date Type Department Care Team (Late st Contact Info) Description 12/21/2024 Documentation Only [facility] [place], [address] [place] [address] Coni Newman [address] [place] [address] Social History Tobacco Use Types [...] on filedocumented in this encounter Care Teams Maintenance Shop Technician Relationship Specialty Start Date End Date Carmela Landeros MD [address] [place] [address] PCP - General Family Medicine 12/18/20 documented as of this encounter
--- OUTSIDE RECORDS SUMMARY | 2025-02-10 17:46 | XMS_ITS | Encounter Summary ---
Author Organization [facility] Address [address] [place] [address] Phone Care Team Providers Care Vision Rehabilitation Therapist Name Role Phone Carmela Landeros MD Primary Care Provider [phone] Encounter Details Date Type Department Care Team (Late st Contact Info) Description 01/14/2025 Office Communication [facility] [address] [place] [address] Coni Newman [address] [place] [address] Social History Tobacco Use Types [...] on filedocumented in this encounter Care Teams Vision Rehabilitation Therapist Relationship Specialty Start Date End Date Carmela Landeros MD [address] [place] [address] PCP - General Family Medicine 12/18/20 documented as of this encounter
--- OUTSIDE RECORDS SUMMARY | 2025-02-10 17:46 | XMS_ITS | Encounter Summary ---
Author Organization [email or web address] Address [address] [facility] 7 [place] [address] Care Team Providers Care Medical Scheduler Name Role Phone Carmela Landeros MD Primary Care Provider [phone] Reason for Visit * Reason Comments Med Refill Encounter Details Date Type Department Care Team ([facility] st Contact Info) Description 01/24/2025 Refill [facility] PEDS [address] [place], [place] [phone] Kvng Meza MD [address] [place] [address] Social History Tobacco Use Types Packs/Day Years [...] 04/06/2025 2:15 PM EST Clinical Support [facility] [address] [place] [address] Kendal Rothman, VENICE [address] [place] [address] documented as of this encounter Visit Diagnoses Not on filedocumented in this encounter Additional Health Concerns Assessment Noted Time PHQ-9 Depression Total Score: 16 024 3:27 PM EDT documented as of this encounter Care Teams Medical Scheduler Relationship Specialty Start Date End Date Carmela Landeros MD [address] [place] [address] PCP - General Family Medicine 03/01/21 Tae Urbina MD Consulting Physician Nephrology 12/22/18 José Reyez MD Consulting Physician Pulmonary Disease 12/22/18 Dr. Levar Oates MD [address] [place] [address] Psychiatrist 09/30/24 documented as of this encounter
--- OUTSIDE RECORDS SUMMARY | 2025-02-10 17:46 | XMS_ITS | Encounter Summary ---
Author Organization [employer] Address [address] [facility] [address] [place] [address] Care Team Providers Care Bankruptcy Judge Name Role Phone Carmela Landeros MD Primary Care Provider [phone] Reason for Visit * Reason Onset Date Comments Nurse Triage 11/06/2023 Encounter Details Date Type Department Care Team ([facility] st Contact Info) Description 11/06/2023 Telephone [facility] [address] [place] [address] Carmela Landeros MD [address] [place] [address] Nurse Triage Social History Tobacco Use Types Packs/Day Years Used Date Smoking Tobacco: Former Passive Smoke Exposure: Never Smokeless Tobacco: Former Alcohol Use Standard Drinks/Week Comments Not Currently 0 (1 standard drink = 0.6 oz pur e alcohol) Depression Answer Date Recorded Patient Health Questionnaire-9 Score 4 02/19/2023 Housing Stability Answer Date Recorded What is your housing situation today? I have sabrinatiera torres 03/20/[address] you [...] t he electric, gas, oil or water [employer] threatened to shut off services in your [...] encounter Miscellaneous Notes * Telephone Encounter - Selene García - 11/07/2023 11:31 AM EDT Tc from [facility] calling informing pt blood sugar is on 500, pt is denying symptoms and refusing to go to the ER, any questions for [facility] [phone] * Telephone Encounter - Ryann Yanez RN - 11/06/2023 1:30 PM EDT called pt to triage, spoke to pt. through [employer] craft laborer. pt states several days duration of worsening high blood sugars. pt states blood sugar in the 400's the last couple of days, 417,441. pt also states has been unable to get her Trulicity 1.5 and went through a prior auth that was approved. however, the pharmacy will not have the medication until 11/16 and this is too long. asked pt to doanother blood sugar while on the phone and pt states she is out and will not be going home for a while. pt denies significant symptoms other than mild headaches. advised home care: test Q2 hours, lots of water, avoid sweets, carbs, sugars for now, and seek ER care if worsening or other severe symptoms. advised to call back tomorrow, no available appt to schedule at this time. will task to team nurses to check in with pt later this afternoon for status update or further recommendations. pt understands and agrees with plan. insurance verified. Protocol Used: Diabetes - High Blood Sugar (Adult) Protocol-Based Disposition: Discuss with PCP and Callback by Nurse within 1 Hour Video visit offer not recorded Positive Triage Question: * Blood glucose > 400 mg/dL (22.2 mmol/L) * All higher-acuity triage questions were negative Care Advice Discussed: * High Blood Sugar (Hyperglycemia) * Treatment - Liquids * Continue Insulin * Diabetes Pills * Measure and Record Your Blood Glucose * Reasons To Call Back - Blood glucose over 300 mg/dL (16.7 mmol/L), two or more times in a row. - Vomiting lasting over 4 hours or unable to drink any fluids - Rapid breathing occurs - You have more questions - You become worse * Telephone Encounter - Hesham Neal - 11/06/2023 12:57 PM EDT Tc from pt returning call regarding message prior. Slovak Speaker * Telephone Encounter - Selene García - 11/06/2023 12:13 PM EDT Symptom: High Blood Sugar - Caller Reports Outcome: Schedule an urgent appointment (within 1 hour) or talk to a nurse or provider soon Reason: Getting worse, headaches. 417 today The caller accepted this outcome documented in this encounter Plan of Treatment Upcoming Encounters Date Type Department Care Team (Late st Contact Info) Description 04/06/2025 2:15 PM EST Clinical Support [facility] MED & PEDS [address] [place] [address] Kendal Rothman, VENICE [address] [place] [address] documented as of this encounter Visit Diagnoses Not on filedocumented in this encounter Additional Health Concerns Assessment Noted Time PHQ-9 Depression Total Score: 4 02/20/20 23 10:24 AM EDT documented as of this encounter Care Teams Bankruptcy Judge Relationship Specialty Start Date End Date Carmela Landeros MD [address] [place] [address] PCP - General Family Medicine 03/01/21 Tae Urbina MD Consulting Physician Nephrology 12/22/18 José Reyez MD Consulting Physician Pulmonary Disease 12/22/18 Dr. Levar Oates MD [address] [place] [address] Psychiatrist 09/30/24 documented as of this encounter
--- OUTSIDE RECORDS SUMMARY | 2025-02-10 17:46 | XMS_ITS | Encounter Summary ---
Author Organization [facility] Address [address] [place] [address] Phone Care Team Providers Care Wastewater Treatment Engineer Name Role Phone Carmela Landeros MD Primary Care Provider [phone] Encounter Details Date Type Department Care Team (Late st Contact Info) Description 12/21/2024 Documentation Only [facility] [place], [address] [place] [address] Coni Newman [address] [place] [address] Social History Tobacco Use Types [...] on filedocumented in this encounter Care Teams Wastewater Treatment Engineer Relationship Specialty Start Date End Date Carmela Landeros MD [address] [place] [address] PCP - General Family Medicine 12/18/20 documented as of this encounter
--- OUTSIDE RECORDS SUMMARY | 2025-02-10 17:46 | XMS_ITS | Clinical Summary ---
Author Organization [employer] Address [address] 7 [place] [address] Care Team Providers Care Separations Scientist Name Role Phone Carmela Landeros MD Primary Care Provider [phone] Allergies No known active allergies Medications * This document contains information received from the source organization and may not represent a complete record from that organization. risperiDONE (RisperDAL) 1 MG tablet 1.5 mg. Active sertraline (Zoloft) 100 MG tablet Comments: Filled Date: Jan 29 2019 12:00AM Patient Notes: TK 1 AND /2 TS PO Q NIGHT Duration: 019 Active ketotifen (Zaditor) 0.025 % ophthalmic solutionIndicati ons:Itchy eyes Administer 1 drop into both eyes 2 times daily. 10 mL 023 Active Blood Pressure kitIndications:E levated blood pressure reading 1 Units in the morning. 1 kit 023 Active busPIRone (Buspar) 5 MG tablet Take 5 mg by mouth 2 times daily. 023 Active fluticasone furoate (Arnuity Ellipta) 100 MCG/ACT inhaler Inhale 1 puff in the morning. Rinse mouth with water after use to reduce aftertaste and incidence of candidiasis. Do not swallow. 1 each 024 Active dulaglutide (Trulicity) 4.5 MG/0.5ML solution pen-injectorIndi cations:Type 2 diabetes mellitus with diabetic polyneuropathy, unspecified whether long-term insulin use (CMS/HCC) Inject 4.5 mg under the skin 1 (one) time per week. 4 each 024 Active naloxone (Narcan) 4 mg/0.1 mL nasal spray Administer 1 spray (4 mg) into affected nostril(s) if needed for opioid reversal. May repeat every 2-3 minutes if needed, alternating nostrils, until medical assistance becomes available. 2 each 024 Active furosemide (Lasix) 20 MG tabletIndication s:Lower extremity edema TAKE 1 TABLET(20 MG) BY MOUTH TWICE DAILY 180 tablet 1 024 Active cholecalciferol VITAMIN D (Vitamin D-3) 50 MCG (2000 UT) capsuleIndicatio ns:Vitamin D deficiency Take 1 capsule (50 mcg) by mouth Once per day. 90 capsule 2 025 Active ferrous gluconate (Fergon) 324 (38 Fe) MG tablet TAKE 1 TABLET(324 MG) BY MOUTH DAILY 90 tablet 1 025 Active loratadine (Claritin) 10 MG tablet TAKE 1 TABLET BY MOUTH DAILY. 90 tablet 1 025 Active glipiZIDE (Glucotrol) 10 MG tabletIndication s:Type 2 diabetes mellitus with diabetic polyneuropathy, with long-term current use of insulin ([facility]) TAKE 1 TABLET(10 MG) BY MOUTH BEFORE BREAKFAST AND BEFORE THE EVENING MEAL 180 tablet 1 025 Active traZODone (Desyrel) 150 MG tablet Take 150 mg by mouth if needed at bedtime for sleep. 025 Active hydrOXYzine HCl (Atarax) 25 MG tablet TAKE 1 TABLET BY MOUTH THREE TIMES DAILY NEEDED FOR SEVERE ANXIETY 025 Active nicotine (Nicoderm CQ) 21 MG/24HR patch Place 1 patch on the skin 1 (one) time each day at the same time. 30 patch 025 Active lisinopril 2.5 MG tabletIndication s:Hypertension, unspecified type Take 1 tablet (2.5 mg) by mouth Once per day. 90 tablet 2 025 Active glucose blood (FREESTYLE LITE) test strip USE TO TEST BLOOD SUGAR THREE TIMES DAILY 100 strip Active FreeStyle lancets 1 each by Other route 4 times daily. Test blood sugar 3 times a day 200 each Active Dulaglutide (Trulicity) 4.5 MG/0.5ML solution auto-injectorInd ications:Type 2 diabetes mellitus with diabetic polyneuropathy, unspecified whether shift boss insulin use ([facility]) INJECT 4.5MG SUBCUTANEOUSLY ONE DAY A WEEK 2 mL 2 025 Active albuterol 108 (90 Base) MCG/ACT inhaler Inhale 2 puffs every 4 (four) hours if needed for wheezing. 18 g 2 025 Active gabapentin (Neurontin) 300 MG capsuleIndicatio ns:Type 2 diabetes mellitus with hyperglycemia, unspecified whether long-term insulin use ([facility]) TAKE 1 CAPSULE(300 MG) BY MOUTH THREE TIMES DAILY 270 capsule 1 025 Active oxyCODONE-acetam inophen (Percocet) 5-325 MG tabletIndication s:Back pain, unspecified back location, unspecified back pain laterality, unspecified chronicity Take 1 tablet by mouth every 12 (twelve) hours if needed for severe pain. 56 tablet 025 Active atorvastatin (Lipitor) 20 MG tabletIndication s:Hyperlipidemia , unspecified hyperlipidemia type TAKE 1 TABLET BY MOUTH EVERY DAY 90 tablet 2 025 Active amLODIPine (Norvasc) 5 MG tablet TAKE 1 TABLET BY MOUTH IN THE MORNING 90 tablet 1 025 Active pantoprazole (ProtoNix) 40 MG EC tabletIndication s:Gastroesophage al reflux disease, unspecified whether esophagitis present TAKE 1 TABLET(40 MG) BY MOUTH BEFORE BREAKFAST. DO NOT CRUSH, CHEW, OR SPLIT 90 tablet 1 025 Active estradiol (Estrace) 0.1 MG/GM vaginal cream INSERT 2 GRAMS VAGINALLY DAILY 42.5 g 2 025 Active atorvastatin (Lipitor) 20 MG tabletIndication s:Hyperlipidemia , unspecified hyperlipidemia type Take 1 tablet (20 mg) by mouth Once per day. 90 tablet 2 024 2024 Discontinued amLODIPine (Norvasc) 5 MG tablet TAKE 1 TABLET(5 MG) BY MOUTH IN THE MORNING 90 tablet 1 025 2024 Discontinued(R eorder (will not trigger notification to Pharmacy)) pantoprazole (ProtoNix) 40 MG EC tabletIndication s:Gastroesophage al reflux disease, unspecified whether esophagitis present TAKE 1 TABLET(40 MG) BY MOUTH BEFORE BREAKFAST. DO NOT CRUSH, CHEW, OR SPLIT 90 tablet 1 025 2024 Discontinued estradiol (Estrace) 0.1 MG/GM vaginal cream Insert 2 g into the vagina Once per day. 42.5 g 2 025 2024 Discontinued Active Problems Problem Noted Date Diagnosed Date Left hip pain 10/07/2024 Assessment & Plan (10/07/2024 12:22 PM EDT): Patient reports left hip pain for the past 2 months. The pain appears to be constant, occurring anytime regardless of activity. Given the patient's age and reported degenerative issues, this could be indicative of osteoarthritis or other degenerative joint disease. Further evaluation is needed to determine the exact cause and severity of the condition. 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 Domains noticed to be more deficient is recall, language, attention, memory, naming and executive function. We could discuss in latter appt of role of neurology given her moderate cognitive dysfunction. Stage 3b chronic kidney disease 12/23/2023 Obesity, morbid 08/21/2023 Hypertension 04/17/2023 Assessment & Plan (10/07/2024 12:21 PM EDT): Elevated systiolic, target BP for CKD & DM, < 130/80 mmHg, will continue to monitor. If persistent elevated will need to adjust regimen Assessment & Plan (02/23/2024 6:04 PM EDT): Closed to control. Target < 130/80 mmHg given hx of DM Assessment & Plan (04/17/2023 4:11 PM EST): Controlled: will restart Lisinopril. Advised to keep monitoring at home and bring readings upon next office visit. Physical exam 02/19/2023 Assessment & Plan (02/19/2023 11:11 AM EDT): Seen for physical exam for program. She has various problems with gait, chronic pain, urinary incontinence, psych disorder and needs help with various ADLs and IADLs. She is living with SCREEN PRINTER HELPER at this moment. Behavior concern in adult 11/22/2022 Assessment & Plan (11/22/2022 10:25 AM EDT): Patient with frequent aggressive and non compliant behaviors towards adult foster care workers. Will benefit from reestablishing with behavioral health services. Anxiety 11/22/2022 Assessment & Plan (02/19/2023 11:10 AM EDT): Requested refill of hydroxyzine, again I am only sending for 3 months they need to speak with psychiatry. Assessment & Plan (11/22/2022 12:58 PM EDT): Assessment: Balwinder was engaged with active reflective listening and open- ended questions. Assessed symptoms, risks, and social supports with direct questions. Discussed current symptoms intensity and frequency. Emotions were normalized and validated. She identified watching tv as coping mechanisms and careers counsellor as protective factors. Provided psychoeducation around coping skills to use to manage anxiety. Discussed OP therapy and recommended and gave contact information [facility] for OP therapy. Provided education around integrated medicine and the options of follow up BE's as needed. Provided contact information should questions or concerns arise. Plan: Denae will engage in effective coping mechanisms to control anxiety. She will contact [facility] to request a same day therapy appt. Patient with mood swings, lack of motivation, irritability feeling down, sleep disturbance, little energy, poor appetite, feeling bad about herself, moving slow, persistent worry, She reported hx of Bipolar, anxiety, currently connected with Psychiatrist at [facility] Dr. Levar Olmedo, would like to be referred to [facility] for Ind. Therapy. She denies SI, HI, AVH or self-harm. Living with careers counsellor at [facility] at risk of loosing it. Patient will benefit from Ind. Therapy. At this time Denae Madrid meets criteria for Visit Diagnoses: Problem List Items Addressed This Visit Other Anxiety Patient ready to address current needs Yes Strengths include is aware of sxs and dxs, motivated to engage in services PLAN: 1. Follow up with [facility]: Not recommended for follow-up 2. Patient goal is to connect with therapist 3. Behavioral Recommendations a. Ind. therapy b. Use of coping skills c. Contact [facility] for an appt. Incontinence of feces 09/17/2022 Assessment & Plan (09/18/2022 8:53 AM EDT): Patient with decreased anal tone, reports has episodes of diarrhea on and off, was not able to elaborate on frequency of incidents or setting of them. Will refer to GI. Anemia 09/10/2022 Assessment & Plan (09/10/2022 1:35 PM EDT): Will check levels and f/up with results. On iron supplementation. Esophageal varices without bleeding 09/05/2022 Class 2 obesity 08/26/2022 Assessment & Plan (10/07/2024 12:25 PM EDT): Discussed calorie deficit, recommended reduction of 20-30% of maintenance calories; net sql developer referral offered. Recommended to decrease soda and sugary beverage consumption. Recommended at least 20 g per meal of protein to assist with satiety. Recommended at least 150 min/week of moderate intensity exercise. Assessment & Plan (08/22/2023 2:50 AM EDT): Discussed calorie deficit, recommended reduction of 20-30% of maintenance calories; net sql developer referral offered. Recommended to decrease soda and sugary beverage consumption. Recommended at least 20 g per meal of protein to assist with satiety. Recommended at least 150 min/week of moderate intensity exercise. Hyperglycemia 04/16/2021 Chronic kidney disease due to hypertension 09/13 Diabetic nephropathy associa larissa with type 2 diabetes mellitus 09/14/2019 Subclinical hypothyroidism 09/22/2018 Female stress incontinence 04/22/2017 Assessment & Plan (10/07/2024 12:23 PM EDT): - Provide prescription for incontinence wipes Assessment & Plan (02/19/2023 11:14 AM EDT): Denae Madrid requires incontinence equipment given a history of (dxmixede incontinence), she has had appropriate workup, treatment and referrals to evaluate for potential reversible factors contributing to her incontinence with partial/incomplete resolution of symptoms. The patient has the following risk factors for developing incontinence: high parity, hx of vaginal deliveries, menopause impaired cognitive function, neurological disorders, impaired mobility, increasing age, & obesity). Tear of meniscus of knee 04/22/2017 Assessment & Plan (08/21/2023 2:46 PM EDT): Patient s clinical findings support the need for a walker given the patient has a mobility limitation that significantly impairs her ability to participate in one or more mobility-related activities of daily living (MRADL). Patient has a minimal need for weight bearing and will benefit from a four-wheel walker (rollator) with a seat and a basket Medical condition: Left knee osteoarthritis and left knee tear of meniscus Weight: Wt Readings from Last 2 Encounters: 08/21/23 160 lb 12.8 oz (72.9 kg) 04/17/23 166 lb (75.3 kg) Patient needs a walker to perform MRADL s and the functional mobility deficit cannot be sufficiently resolved by use of a cane or crutches, given she will need assistance of both upper extremities for balance. The patient is willing to use a walker and the functional mobility deficit can be improved with the use of this device. Cirrhosis of liver 03/19/2016 Type 2 diabetes mellitus 03/19/2016 Assessment & Plan (10/07/2024 12:25 PM EDT): Lab Results Component Value Date HGBA1C 6.1 (A) 10/07/2024 Controlled. Cont current regimen. Assessment & Plan (02/23/2024 3:57 PM EDT): Controlled, A1c is at goal. Continue on current medications. Assessment & Plan (08/22/2023 2:52 AM EDT): Uncontrolled with 8.6 for A1C. Advised to continue monitoring at home and bring readings upon next office visit. Labs: Glucose, A1C, CBC, CMP, Lipid Panel Assessment & Plan (04/17/2023 4:10 PM EST): Uncontrolled: patient will have an increase of Trulicity to 4.5MG/0.5ML. Advised to keep monitoring at home and bring readings upon next office visit. Assessment & Plan (02/19/2023 11:09 AM EDT): Did not bring readings with her, she had metformin and prandin discontinued given kidney dysfunction will increase trulicity and schedule for f/up with glucose readings Unclear why day program has not sent readings since the order was sent and we got fax confirmation that it was received. Assessment & Plan (01/20/2023 9:31 AM EDT): Unable to provide accurate readings. Spoke with patient's social work administrator, Jazmin. Reports dynamic between patient and SCREEN PRINTER HELPER. Reports she is able to assign nurse to monitor daily blood pressure and glucose levels and fax to clinic. Will increase trulicity from 0.75 mg to 1.5 mg. Assessment & Plan (09/10/2022 1:34 PM EDT): Controlled POC a1c. Continue with current regimen and f/up in 6 months. Continue metformin, trulicity & prandin. Resolved Problems Problem Noted Date Diagnosed Date Resolved Date Encounter for health-related screening 02/19/2023 02/23/2024 Urinary incontinence 09/17/2022 024 Assessment & Plan (09/17/2022 4:41 PM EDT): Patient has a history of mixed urinary incontinence and requires the use of pull-on products, they have had appropriate workup, treatment and referrals to evaluate for potential reversible factors contributing to their incontinence without partial/incomplete resolution of symptoms, and the patient is not bedridden. This patient has the following risk factors for developing incontinence ( F: high parity, hx of vaginal deliveries, menopause) ; (G: lower GI tract disorder, impaired mobility, increasing age, obesity). Prior referrals: Urology, will send to GI Test results: UA/ Ucx, pelvic exam with atrophy and decr rectal tone Prior Treatments and efficacy: Has had liners but having accidents with them, no medication trials concern of side effects given mobility issues. Encounters Date Type Department Care Team Description 02/03/2025 Refill [facility] [address] [place] [address] Carmela Landeros MD 01/27/2025 Refill [facility] [address] [place] [address] Carmela Landeros MD 01/26/2025 Refill [facility] [address] [place] [address] Sarah Renteria MD Gastroesophageal reflux disease, unspecified whether esophagitis present 01/24/2025 Refill [facility] [address] [place] [address] Jon Camp MD 01/24/2025 Refill [facility] [address] [place] [address] Lidia Mcdaniel MD Vitamin D deficiency 01/24/2025 Refill [facility] [address] [place] [address] Kvng Meza MD 01/24/2025 Refill [facility] [address] [place] [address] Carmela Landeros MD Hyperlipidemia, unspecified hyperlipidemia type 01/24/2025 Refill [facility] [address] [place] [address] Sarah Renteria MD 01/11/2025 Refill [facility] [address] [place] [address] Carmela Landeros MD Back pain, unspecified back location, unspecified back pain laterality, unspecified chronicity 01/03/2025 2:30 PM EDT Telemedicine [facility] [address] [place] [address] Kendal Rothman RN Back pain, unspecified back location, unspecified back pain laterality, unspecified chronicity 01/03/2025 Telephone [facility] [address] [place] [address] Kendal Rothman RN 01/03/2025 Telephone [facility] [address] [place] [address] Kendal Rothman RN 01/03/2025 Travel 12/30/2024 Refill [facility] [address] [place] [address] Lidia Mcdaniel MD Type 2 diabetes mellitus with hyperglycemia, unspecified whether shift boss insulin use (CMS/[facility]) 12/29/2024 Telephone [facility] [address] [place] [address] Carmela Landeros MD Call Back Request 12/14/2024 Refill [facility] [address] [place] [address] Carmela Landeros MD 12/13/2024 Refill [facility] [address] [place] [address] Carmela Landeros MD Type 2 diabetes mellitus with diabetic polyneuropathy, unspecified whether long-term insulin use (CMS/[facility]) 12/06/2024 Refill [facility] [address] [place] [address] Carmela Landeros MD Back pain, unspecified back location, unspecified back pain laterality, unspecified chronicity 12/05/2024 Refill [facility] [address] [place] [address] Carmela Landeros MD Hyperlipidemia, unspecified hyperlipidemia type 12/01/2024 Refill [facility] [address] [place] [address] Lidia Mcdaniel MD Type 2 diabetes mellitus with hyperglycemia, unspecified whether long-term insulin use (CMS/HCC) 11/22/2024 2:00 PM EDT Telemedicine [facility] [address] [place] [address] Kendal Rothman RN Back pain, unspecified back location, unspecified back pain laterality, unspecified chronicity 11/22/2024 Telephone [facility] [address] [place] [address] Kendal Rothman RN 11/22/2024 Travel 11/19/2024 Telephone [facility] [address] [place] [address] Carmela Landeros MD Call Back Request 11/10/2024 Refill [facility] [address] [place] [address] Kendal Rothman RN Back pain, unspecified back location, unspecified back pain laterality, unspecified chronicity 11/10/2024 Telephone [facility] [address] [place] [address] Carmela Landeros MD Med Refill from Last 3 Months Immunizations Immunization Administration Dates Next Due Hep A, Adult 02/23/2024 Hep B, adult 09/26/2020,05/27/2017,04/22/2017 Influenza Injectable Quadriv alant Preservative Free IIV4 MDCK 04/02/2021 Influenza injectable quadriv alent IIV4 with preservative 04/16/2019,03/01/2016 Influenza injectable quadriv alent preservative free 02/12/2023,02/28/2022,03/14/2021,02/17,05/28/2018,03/12/2017 Influenza, Injectable, MDCK, preservative free 02/23/2024 Mary SARS-CoV-2 Vaccination 08/04/2020 Moderna Covid-19 Vaccine 12+ 05/22/2021 Moderna Covid-19 Vaccine 6+ Bivalent 03/30/2022 Pneumococcal Conjugate PCV 20 02/19/2023 Pneumococcal Polysaccharide PPSV23 06/08/2015 Tdap 07/28/2024,02/18/2020 Zoster, Recombinant 01/01/2021,10/27/2020 Family History Medical History Relation Name Comments Cancer Father Cancer Sister Relation Name Status Comments Father Sister Social History Tobacco Use Types Packs/Day Years Used Date Smoking Tobacco: Every Day Cigarettes Passive Smoke Exposure: Never Smokeless Tobacco: Former Tobacco Cessation:Ready to Q uit: Not Asked; Counseling Given: Not Answered Alcohol Use Standard Drinks/Week Comments Not Currently [...] Orientation Straight 04/01/2022 10 :29 AM EDT Last Filed Vital Signs Vital Sign Reading Time Taken Comments Blood Pressure 138/78 10/07/2024 9:54 AM EDT Pulse 62 10/07/2024 9:54 AM EDT Temperature 36.7 C (98.1 F) 10/07/2024 9:54 AM EDT Respiratory Rate 18 10/07/2024 9:54 AM EDT Oxygen Saturation 97% 10/07/2024 9:54 AM EDT Inhaled Oxygen Concentration - - Weight 73.7 kg (162 lb 6.4 oz) 10/07/2024 9:54 A M EDT Height 145 cm (4' 9.09 ) 10/07/2024 9:54 AM EDT Body Mass Index 35.04 10/07/2024 9:54 AM EDT Plan of Treatment Upcoming Encounters Date Type Department Care Team (Late st Contact Info) Description 04/06/2025 2:15 PM EST Clinical Support [facility] [address] [place] [address] Kendal Rothman, VENICE [address] [place] [address] Health Maintenance Due Date Last Done Comments CT Colonography 1958 Dental Prophylaxis 1958 Dental X-Ray: Bitewings 1958 FIT DNA/Cologuard 1958 FIT 1958 FOBT 1958 Sigmoidoscopy 1958 Diabetes: Foot Exam 1968 Eye Exam 1968 Hepatitis C Screening 1976 RSV Patients and Patients Aged 60 years or older (1 - Risk 60-74 years 1-dose series) 2018 Dental X-Ray: Full Mouth 01/15/2019 01/15/2016 Colonoscopy 08/18/2022 08/18/2017 Colorectal Cancer Screening 08/18/2022 Dental Oral Exam 05/02/2023 10/29/2022, 01/15/2016 Lipid Panel 11/23/2023 11/22/2022, 09/26/2020 Depression Monitoring 08/22/2024 02/23/2024, 024 Hepatitis A Vaccines (2 of 2 - Risk 2-dose series) 08/22/2024 02/23/2024 COVID-19 Vaccine ( season) 2025 03/24/2023, 03/30/2022, 11/02/2021, Additional history exists Influenza Vaccine (#1) 2025 , 02/12/2023, 02/28/2022, Additional history exists Diabetes: Hemoglobin A1C 04/09/2025 025, 02/23/2024, 08/21/2023, Additional history exists SDOH Screening 09/30/2025 09/30/2024 Alcohol/Substance Use Screening 10/07/2025 10/07/2024 Tobacco Screening 10/07/2025 10/07/2024 Mammogram 11/09/2026 11/09/2024, 12/2022, 10/18/2022, Additional history exists HPV/Cotest 09/04/2027 09/03/2022 Pap Smear 09/04/2027 09/03/2022 DTaP/Tdap/Td Vaccines (3 - Td or Tdap) 07/28/2034 07/28/2024, 02/18/2020 Hepatitis B Vaccines Completed 09/26/2020, 05/27/2017, 04/22/2017 Zoster Vaccines Completed 01/01/2021, 10/27/2020 Pneumococcal Vaccine: 50+ Years Completed 02/19/2023, 06/08/2015 HIB Vaccines Aged Out No longer eligi ble based on patient's age to complete this topic HPV Vaccines Aged Out No longer eligi ble based on patient's age to complete this topic IPV Vaccines Aged Out No longer eligi ble based on patient's age to complete this topic Meningococcal B Vaccine Aged Out No l onger eligible based on patient's age to complete this topic Meningococcal Vaccine Aged Out No heath kimi eligible based on patient's age to complete this topic RSV under 20 months Aged Out No longe r eligible based on patient's age to complete this topic Rotavirus Vaccines Aged Out No longer eligible based on patient's age to complete this topic Procedures Procedure Name Priority Date/Time Associated Diagnosis Comments BI MAMMOGRAM SCREENING TOMOSYNTHESIS BILATERAL Routine 11/09/2024 Breast cancer screening by mammogram POCT GLYCATED HEMOGLOBIN, TOTAL Routine 10/07/2024 11:07 AM EDT Type 2 diabetes mellitus with diabetic polyneuropathy, with long-term current use of insulin ([facility]/HCC) LIPID PANEL, STANDARD Routine 11/22/2022 9:42 AM EDT Type 2 diabetes mellitus with diabetic polyneuropathy, with long-term current use of insulin (CMS/HCC) PERIODIC ORAL EVALUATION - ESTABLISHED PATIENT Routine 10/29/2022 10:00 AM EDT IMAGE-GUIDED PAP W/AGE BASED SCR PROTOCOLS Routine 09/03/2022 2:22 PM EDT Cervical cancer screening HM COLONOSCOPY Routine 08/18/2017 PANORAMIC RADIOGRAPHIC IMAGE Routine 01/15/2016 12:00 AM EDT from Last 3 Months or Most Recently Relevant to Health Maintenance Results * BI Mammogram Screening Tomosynthesis Bilateral (11/09/2024) Anatomical Region Laterality Modality Breast Bilateral Mammography Carmela Landeros MD IMG BI PROCEDURES Final Resul t * (ABNORMAL) POCT HGB A1C (10/07/2024 11:07 AM EDT) Hemoglobin A1C 6.1(A) 4.0 - 6.0 % QC Media Lot # [id number] Lot# Expiration Date 122, Blood 10/07/2024 11:0 7 AM EDT Carmela Landeros MD POINT OF CARE TEST ENTER/EDIT ORDERABLES Final Result * (ABNORMAL) Lipid Panel, Standard (11/22/2022 9:42 AM EDT) Cholesterol, Total 182 <200 mg/dL [facility] [place] [facility] HDL Cholesterol 45(L) > OR = 50 mg/dL [facility] [place] [facility] Triglycerides 164(H) <150 mg/dL [facility] [place] [facility] LDL Cholesterol 109(H) mg/dL (calc) [facility] [place] [facility] Comment: Reference range: <100 Desirable range <100 mg/dL for primary prevention; <70 mg/dL for patients with CHD or diabetic patients with > or = 2 CHD risk factors. LDL-C is now calculated using the Linda calculation, which is a validated novel method providing better accuracy than the Friedewald equation in the estimation of LDL-C. Ed CANAS et al. ALVA. 2013;310(19): 6650-6185 (http://education.GordianTec/faq/VWO455) Chol/HDLC Ratio 4.0 <5.0 (calc) [facility] [place] [facility] Non-HDL Cholesterol 137(H) <130 mg/dL (calc) [employer] [employer] [facility] Comment: For patients with diabetes plus 1 major ASCVD risk factor, treating to a non-HDL-C goal of <100 mg/dL (LDL-C of <70 mg/dL) is considered a therapeutic option. Blood Venous blood specimen / Unknown 11/22/2022 9:42 AM EDT 11/22/2022 9:42 AM EDT Narrative [facility] - 11/23/2022 5:17 PM EDT FASTING:NO FASTING: NO us Carmela Landeros MD LAB BLOOD ORDERABLES Final Re sult [address], [place] [address] [facility] [place] [facility] [address] [place] [phone] * Image-Guided Pap with Age-Based Screening Protocols (09/03/2022 2:22 PM EDT) Comment [facility] [place] [facility] Comment: This order for age-based cervical cancer and STI screening follows ACOG guidelines(PB 168, 140, ZFK685). See individual assays for performing site location. Clinical Information: None given Blood cell [facility] LMP: NONE GIVEN [facility] [place] [facility] Prev. PAP: NONE GIVEN [facility] [place] [facility] Prev. BX: NONE GIVEN [facility] SOURCE: None given Blood cell [place] Statement Of Adequacy: SATISFACTORY FOR EVALUATION [facility] [place] [facility] Interpretation/Re sult: [facility] [place] [facility] Comment: Negative for intraepithelial lesion or malignancy. Atrophic pattern; predominantly parabasal cells COMMENT: This Pap test has been evaluated with computer assisted technology. [facility] [place] [facility] Operational Risk Analyst: Alla [employer] Comment: WXW, CT(ASCP) CT Screening Location: [address] [address] (Always Message) [facility] ModuleQ Comment: EXPLANATORY NOTE: The Pap is a screening test for cervical cancer. It is not a diagnostic test and is subject to false negative and false positive results. It is most reliable when a satisfactory sample, regularly obtained, is submitted with relevant clinical findings and history, and when the Pap result is evaluated along with historic and current clinical information. HPV nRNA E6/E7 Not Detected Not Detected [facility] Comment: Methodology: Hydroelectric Plant Operator-Mediated Amplification This assay detects E6/E7 viral messenger RNA (mRNA) from 14 high-risk HPV types (16,18,31,33,35,39,45,51,52,56,58,59,66,68). Cervical sources are required for HPV testing. If a vaginal source from a patient who has had a total hysterectomy with removal of cervix was submitted, please contact the testing laboratory for alternative testing options. For additional information, please refer to http://education.Spot Coffee/faq/HMI000j6 (This link if provided for information/ educational purposes only.) Cytology specimen container (physical object) 09/03/2022 2:22 PM EDT 09/04/2022 10:27 AM EDT Carmen Lange [facility] LAB BLOOD ORDERABLES Jessica l Result [facility] [address], [place] [address] [facility] [address] [place] [address] * Colonoscopy (08/18/2017) Colonoscopy Normal Normal Narrative Kimberley Michael - 08/18/2017 Recommended 5 year follow up Historical Provider MD HEALTH MAINTENANCE Final Result from Last 3 Months or Most Recently Relevant to Health Maintenance Insurance [employer]RECTION OPTIONS (O D-SNP) D[facility]AL - [facility] Care Teams Separations Scientist Relationship Specialty Start Date End Date Carmela Landeros MD [address] [place] [address] PCP - General Family Medicine 03/01/21 Tae Urbina MD Consulting Physician Nephrology 12/22/18 José Reyez MD Consulting Physician Pulmonary Disease 12/22/18 Dr. Levar Oates MD [address] [place] [address] Psychiatrist 09/30/24
--- OUTSIDE RECORDS SUMMARY | 2025-02-10 17:46 | XMS_ITS | Encounter Summary ---
Author Organization [facility] Address [address] [place] [address] Phone Care Team Providers Care Med Aide Name Role Phone Carmela Landeros MD Primary Care Provider [phone] Encounter Details Date Type Department Care Team (Late st Contact Info) Description 04/08/2024 Documentation Only [facility] [place], [address] [place] [place] [address] Coni Newman [address] [place] [address] Social History Tobacco Use Types [...] on filedocumented in this encounter Care Teams Med Aide Relationship Specialty Start Date End Date Carmela Landeros MD [address] [place] [address] PCP - General Family Medicine 12/18/20 documented as of this encounter
--- OUTSIDE RECORDS SUMMARY | 2025-02-10 17:46 | XMS_ITS | Encounter Summary ---
Author Organization [facility] Address [address] [place] [address] Phone Care Team Providers Care Photographic Supervisor Name Role Phone Carmela Landeros MD Primary Care Provider [phone] Encounter Details Date Type Department Care Team (Late st Contact Info) Description 08/16/2024 Documentation Only [facility] [place], [address] [place] [address] Coni Newman [address] [place] [address] Social History Tobacco Use Types [...] on filedocumented in this encounter Care Teams Photographic Supervisor Relationship Specialty Start Date End Date Carmela Landeros MD [address] [place] [address] PCP - General Family Medicine 12/18/20 documented as of this encounter
--- OUTSIDE RECORDS SUMMARY | 2025-02-10 17:46 | XMS_ITS | Encounter Summary ---
Author Organization [employer] Address [address] [place] [address] [place] [address] Care Team Providers Care Blending Supervisor Name Role Phone Carmela Landeros MD Primary Care Provider [phone] Reason for Visit * Reason Comments Med Refill Encounter Details Date Type Department Care Team ([facility] st Contact Info) Description 01/24/2025 Refill [facility] CH[facility] MED & PEDS [address] [place], [place] [id number] Lidia Mcdaniel MD 505 [place] [address] Vitamin D deficiency Social History Tobacco Use Types Packs/Day Years [...] Description 04/06/2025 2:15 PM EST Clinical Support [facility] MED & PEDS [address] [place] [address] Kendal Rothman, VENICE [address] [place] [address] documented as of this encounter Visit Diagnoses Diagnosis Vitamin D deficiency documented in this encounter Additional Health Concerns Assessment Noted Time PHQ-9 Depression Total Score: 16 024 3:27 PM EDT documented as of this encounter Care Teams Blending Supervisor Relationship Specialty Start Date End Date Carmela Landeros MD [address] [place] [address] PCP - General Family Medicine 03/01/21 Tae Urbina MD Consulting Physician Nephrology 12/22/18 José Reyez MD Consulting Physician Pulmonary Disease 12/22/18 Dr. Levar Oates MD [address] [place] [address] Psychiatrist 09/30/24 documented as of this encounter
--- OUTSIDE RECORDS SUMMARY | 2025-02-10 17:46 | XMS_ITS | Encounter Summary ---
Author Organization [facility] Address [address] [place] [address] Phone Care Team Providers Care Environmental Journalist Name Role Phone Carmela Landeros MD Primary Care Provider [phone] Encounter Details Date Type Department Care Team (Late st Contact Info) Description 08/16/2024 Documentation Only [facility] [place], [address] [place] [address] Coni Newman [address] [place] [address] Social History Tobacco Use Types [...] on filedocumented in this encounter Care Teams Environmental Journalist Relationship Specialty Start Date End Date Carmela Landeros MD 505 [place] [address] PCP - General Family Medicine 12/18/20 documented as of this encounter
--- OUTSIDE RECORDS SUMMARY | 2025-02-10 17:46 | XMS_ITS | Encounter Summary ---
Author Organization [employer] Address [address] [facility] 7 [place] [address] Care Team Providers Care In Service Coordinator Name Role Phone Carmela Landeros MD Primary Care Provider [phone] Reason for Visit * Reason Onset Date Comments Med Refill 09/03/2023 Encounter Details Date Type Department Care Team (Late st Contact Info) Description 09/03/2023 Telephone [facility] MEDICINE [address] [place] [address] Carmela Landeros MD [address] [place] [address] Med Refill Social History Tobacco Use Types Packs/Day Years [...] encounter Miscellaneous Notes * Telephone Encounter - Niko Huynh - 09/03/2023 2:39 PM EDT TC from pt requesting medication refill. Medications needing refill : gabapentin (Neurontin) 300 MG capsule and ferrous gluconate (Fergon) 324 (38 Fe) MG tablet To be sent to: [id number] [place], [place] - [address] [place] [address] AT [address] OF [facility] [address] documented in this encounter Plan of Treatment Upcoming Encounters Date Type Department Care Team (Late st Contact Info) Description 04/06/2025 2:15 PM EST Clinical Support [facility] CHC MED & PEDS 505 [place] [address] Kendal Rothman, RN 505 [place] [address] documented as of this encounter Visit Diagnoses Not on filedocumented in this encounter Additional Health Concerns Assessment Noted Time PHQ-9 Depression Total Score: 4 02/20/20 23 10:24 AM EDT documented as of this encounter Care Teams In Service Coordinator Relationship Specialty Start Date End Date Carmela Landeros MD [address] [place] [address] PCP - General Family Medicine 03/01/21 Tae Urbina MD Consulting Physician Nephrology 12/22/18 José Reyez MD Consulting Physician Pulmonary Disease 12/22/18 Dr. Levar Oates MD [address] [place] [address] Psychiatrist 09/30/24 documented as of this encounter
--- OUTSIDE RECORDS SUMMARY | 2025-02-10 17:46 | XMS_ITS | Encounter Summary ---
Author Organization [facility] Address [address] [place] [address] Phone Care Team Providers Care Wildlife Refuge Manager Name Role Phone Carmela Landeros MD Primary Care Provider [phone] Encounter Details Date Type Department Care Team (Late st Contact Info) Description 04/08/2024 Documentation Only [facility] [place], [address] [place] [address] Coni Newman [address] [place] [address] Social History Tobacco Use Types [...] on filedocumented in this encounter Care Teams Wildlife Refuge Manager Relationship Specialty Start Date End Date Carmela Landeros MD 505 [place] [address] PCP - General Family Medicine 12/18/20 documented as of this encounter
--- OUTSIDE RECORDS SUMMARY | 2025-02-10 17:46 | XMS_ITS | Encounter Summary ---
Author Organization [facility] Address [address] [place] [address] Phone Care Team Providers Care Forklift Operator Name Role Phone Carmela Landeros MD Primary Care Provider Encounter Details Date Type Department Care Team (Late st Contact Info) Description 12/21/2024 Documentation Only [facility] [place], [address] [place] [address] Coni Newman [address] [place] [address] Social History Tobacco Use Types [...] on filedocumented in this encounter Care Teams Forklift Operator Relationship Specialty Start Date End Date Carmela Landeros MD 505 [place] [address] PCP - General Family Medicine 12/18/20 documented as of this encounter
--- OUTSIDE RECORDS SUMMARY | 2025-02-10 17:46 | XMS_ITS | Encounter Summary ---
Author Organization [facility] Address [address] [place] [address] Phone Care Team Providers Care Department Clerk Name Role Phone Carmela Landeros MD Primary Care Provider [phone] Encounter Details Date Type Department Care Team (Late st Contact Info) Description 12/21/2024 Documentation Only [facility] [place], [address] [place] [address] Coni Newman [address] [place] [address] Social History Tobacco Use Types [...] on filedocumented in this encounter Care Teams Department Clerk Relationship Specialty Start Date End Date Carmela Landeros MD 505 [place] [address] PCP - General Family Medicine 12/18/20 documented as of this encounter
--- OUTSIDE RECORDS SUMMARY | 2025-02-10 17:46 | XMS_ITS | Encounter Summary ---
Author Organization [facility] Address [address] [place] [address] Phone Care Team Providers Care Beamer Operator Name Role Phone Carmela Landeros MD Primary Care Provider [phone] Encounter Details Date Type Department Care Team (Late st Contact Info) Description 12/21/2024 Documentation Only [facility] [place], [address] [place] [address] Coni Newman [address] [place] [address] Social History Tobacco Use Types [...] on filedocumented in this encounter Care Teams Beamer Operator Relationship Specialty Start Date End Date Carmela Landeros MD [address] [place] [address] PCP - General Family Medicine 12/18/20 documented as of this encounter
--- OUTSIDE RECORDS SUMMARY | 2025-02-10 17:46 | XMS_ITS | Encounter Summary ---
Author Organization [employer] Address [address] [facility] 7 [place] [address] Care Team Providers Care Lines Tender Name Role Phone Caremla Landeros MD Primary Care Provider [phone] Reason for Visit * Reason Comments Med Refill Encounter Details Date Type Department Care Team ([facility] st Contact Info) Description 01/27/2025 Refill [facility] MEDICINE [address] [place] [address] Carmela Landeros MD 505 [place] [address] Social History Tobacco Use Types Packs/Day Years [...] [facility] [address] [place] [address] Kendal Rothman, VENICE [address] [place] [address] documented as of this encounter Visit Diagnoses Not on filedocumented in this encounter Additional Health Concerns Assessment Noted Time PHQ-9 Depression Total Score: 16 024 3:27 PM EDT documented as of this encounter Care Teams Lines Tender Relationship Specialty Start Date End Date Carmela Landeros MD [address] [place] [address] PCP - General Family Medicine 03/01/21 Tae Urbina MD Consulting Physician Nephrology 12/22/18 José Reyez MD Consulting Physician Pulmonary Disease 12/22/18 Dr. Levar Oates MD [address] [place] [address] Psychiatrist 09/30/24 documented as of this encounter
--- OUTSIDE RECORDS SUMMARY | 2025-02-10 17:47 | XMS_ITS | Encounter Summary ---
Author Organization [employer] Address 75 [facility] 7 [place] [address] Care Team Providers Care Linen Room Supervisor Name Role Phone Carmela Landeros MD Primary Care Provider [phone] Reason for Visit * Reason Comments Med Refill Encounter Details Date Type Department Care Team ([facility] st Contact Info) Description 03/29/2024 Refill [facility] MEDICINE [address] [place] [address] Carmela Landeros MD [address] [place] [address] Type 2 diabetes mellitus with hyperglycemia, unspecified whether half-way insulin use ([facility]); Vitamin D deficiency Social History Tobacco Use [...] Recorded Patient Health Questionnaire-2 Score 3 02/23/2024 Comments Unknown Sex and Gender Information Value [...] Description 04/06/2025 2:15 PM EST Clinical Support [facility] MED & PEDS [address] [place] [address] Kendal Rothman RN [address] [place] [address] documented as of this encounter Visit Diagnoses Diagnosis 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 Levar Oates MD [address] [place] [address] Psychiatrist 09/30/24 documented as of this encounter
--- OUTSIDE RECORDS SUMMARY | 2025-02-10 17:47 | XMS_ITS | Encounter Summary ---
Author Organization [employer] Address [address] [facility] 7 [place] [address] Care Team Providers Care Garment Sewing Machine Operator Name Role Phone Carmela Landeros MD Primary Care Provider [phone] Reason for Visit * Reason Onset Date Comments FYI 07/06/2024 Encounter Details Date Type Department Care Team (Late st Contact Info) Description 07/06/2024 Telephone [facility] MEDICINE [address] [place] [address] Carmela Landeros MD [address] [place] [address] FYI Social History Tobacco Use Types Packs/Day [...] Telephone Encounter - Alice Paulson RN - 07/08/2024 9:52 AM EST Noted. Pt to f/u PRN. * Telephone Encounter - Lamar Pimentel - 07/06/2024 2:39 PM EST Tc from Anthony (nurse) to report pt fell. Pt are ok, not on pain and are able to walk. documented in this encounter Plan of Treatment Upcoming Encounters Date Type Department Care Team (Late st Contact Info) Description 04/06/2025 2:15 PM EST Clinical Support [facility] MED & PEDS 505 [place] [address] Kendal Rothman RN [address] [place] [address] documented as of this encounter Visit Diagnoses Not on filedocumented in this encounter Additional Health Concerns Assessment Noted Time PHQ-9 Depression Total Score: 16 024 3:27 PM EDT documented as of this encounter Care Teams Garment Sewing Machine Operator Relationship Specialty Start Date End Date Carmela Landeros MD [address] [place] [address] PCP - General Family Medicine 03/01/21 Tae Urbina MD Consulting Physician Nephrology 12/22/18 José Reyez MD Consulting Physician Pulmonary Disease 12/22/18 Dr. Levar Oates MD [address] [place] [address] Psychiatrist 09/30/24 documented as of this encounter
--- OUTSIDE RECORDS SUMMARY | 2025-02-10 17:47 | XMS_ITS | Encounter Summary ---
Author Organization [employer] Address [address] [place] [address] Care Team Providers Care Piece Cutter Name Role Phone Carmela Landeros MD Primary Care Provider [phone] Reason for Visit * Reason Onset Date Comments Appointment Request 10/29/2022 Encounter Details Date Type Department Care Team ([facility] st Contact Info) Description 10/29/2022 Telephone [facility] CHC MED & PEDS [address] [place], [place] [phone] Carmela Landeros MD [address] [place] [address] Appointment Request Social History Tobacco Use Types Packs/Day Years Used Date Smoking Tobacco: Former Smokeless Tobacco: Former Alcohol Use Standard Drinks/Week Comments Not Currently 0 (1 standard drink = 0.6 oz pur e alcohol) Comments Unknown Sex and Gender Information Value Date Recorded Sex Assigned at Female 04/01/2022 10:29 AM EDT Legal Sex Female 10:29 AM EDT Gender Identity Female 04/01/2022 10:29 AM EDT Sexual Orientation Straight 04/01/2022 10 :29 AM EDT COVID-19 Exposure Response Date Recorded In the last 10 days, have yo u been in contact with someone who was confirmed or suspected to have Coronavirus/COVID-19? No / Unsure 10/29/2022 9:42 AM EDT documented as of this encounter Miscellaneous Notes * Telephone Encounter - Edna Mccarty - 10/29/2022 3:23 PM EDT Tc from patient requesting for 11/01/22 [facility] APPRENTICE appt to be a televisit appt. Due to having a biopsy appt on the same day, due to mammogram results. documented in this encounter Plan of Treatment Upcoming Encounters Date Type Department Care Team (Late st Contact Info) Description 04/06/2025 2:15 PM EST Clinical Support [facility] MED & PEDS [address] [place] [address] Kendal Rothman, RN [address] [place] [address] documented as of this encounter Visit Diagnoses Not on filedocumented in this encounter Additional Health Concerns Assessment Noted Time PHQ-9 Depression Total Score: 8 09/06/19 23 2:26 PM EDT documented as of this encounter Care Teams Piece Cutter Relationship Specialty Start Date End Date Carmela Landeros MD [address] [place] [address] PCP - General Family Medicine 03/01/21 Tae Urbina MD Consulting Physician Nephrology 12/22/18 José Reyez MD Consulting Physician Pulmonary Disease 12/22/18 Dr. Levar Oates MD [address] [place] [address] Psychiatrist 09/30/24 documented as of this encounter
--- OUTSIDE RECORDS SUMMARY | 2025-02-10 17:47 | XMS_ITS | Encounter Summary ---
Author Organization [employer] Address [address] [place] [address] [address] Care Team Providers Care Head Of Ethics And Compliance Name Role Phone Carmela Landeros MD Primary Care Provider [phone] Reason for Visit * Reason Comments Med Refill Encounter Details Date Type Department Care Team ([facility] Contact Info) Description 11/20/2022 Refill [facility] MED & PEDS [address] [place] [address] Carmela Landeros MD [address] [place] [address] Hypertension, unspecified type Social History Tobacco Use Types Packs/Day Years [...] suspected to have Coronavirus/COVID-19? No / Unsure 11/22/2022 9:37 AM EDT documented as of this encounter Plan of Treatment Upcoming Encounters Date Type Department Care Team ([facility] Contact Info) Description 04/06/2025 2:15 PM EST Clinical Support [facility] MED & PEDS [address] [place] [address] Kendal Rothman RN [address] [place] [address] documented as of this encounter Visit Diagnoses Diagnosis Hypertension, unspecified type documented in this encounter Additional Health Concerns Assessment Noted Time PHQ-9 Depression Total Score: 8 09/06/19 23 2:26 PM EDT documented as of this encounter Care Teams Head Of Ethics And Compliance Relationship Specialty Start Date End Date Carmela Landeros MD [address] [place] [address] PCP - General Family Medicine 03/01/21 Tae Urbina MD Consulting Physician Nephrology 12/22/18 José Reyez MD Consulting Physician Pulmonary Disease 12/22/18 Dr. Levar Oates MD [address] [place] [address] Psychiatrist 09/30/24 documented as of this encounter
--- OUTSIDE RECORDS SUMMARY | 2025-02-10 17:47 | XMS_ITS | Encounter Summary ---
Author Organization [employer] Address 75 [facility] 7 [place] [address] Care Team Providers Care Managed Services Sales Consultant Name Role Phone Carmela Landeros MD Primary Care Provider [phone] Reason for Visit * Reason Onset Date Comments FYI 07/23/2024 Encounter Details Date Type Department Care Team ([facility] st Contact Info) Description 07/23/2024 Telephone [facility] [address] [place] [address] Carmela Landeros MD [address] [place] [address] FYI Social History Tobacco Use Types Packs/Day [...] encounter Miscellaneous Notes * Telephone Encounter - Lamar Pimentel - 07/23/2024 10:50 AM EST Tc from nurse Loera to report pt fell outside on the ice today. Nurse states pt is fine. documented in this encounter Plan of Treatment Upcoming Encounters Date Type Department Care Team (Late st Contact Info) Description 04/06/2025 2:15 PM EST Clinical Support [facility] MED & PED[facility] [address] [place] [address] Kendal Rothman, VEINCE 505 [place] [address] documented as of this encounter Visit Diagnoses Not on filedocumented in this encounter Additional Health Concerns Assessment Noted Time PHQ-9 Depression Total Score: 16 024 3:27 PM EDT documented as of this encounter Care Teams Managed Services Sales Consultant Relationship Specialty Start Date End Date Carmela Landeros MD [address] [place] [address] PCP - General Family Medicine 03/01/21 Tae Urbina MD Consulting Physician Nephrology 12/22/18 José Reyez MD Consulting Physician Pulmonary Disease 12/22/18 Dr. Levar Oates MD [address] [place] [address] Psychiatrist 09/30/24 documented as of this encounter
--- OUTSIDE RECORDS SUMMARY | 2025-02-10 17:47 | XMS_ITS | Encounter Summary ---
Author Organization [employer] Address 75 [facility] 7 [place] [address] Care Team Providers Care Coin Machine Assembler Name Role Phone Carmela Landeros MD Primary Care Provider [phone] Encounter Details Date Type Department Care Team ([facility] st Contact Info) Description 09/02/2024 Orders Only [facility] & PEDS [address] [place], [place] [phone] Jon Camp MD [address] [place] [address] Social History Tobacco Use Types Packs/Day Years [...] Description 04/06/2025 2:15 PM EST Clinical Support [facility] [address] [place] [address] Kendal Rothman, RN 505 [place] [address] documented as of this encounter Visit Diagnoses Not on filedocumented in this encounter Additional Health Concerns Assessment Noted Time PHQ-9 Depression Total Score: 16 024 3:27 PM EDT documented as of this encounter Care Teams Coin Machine Assembler Relationship Specialty Start Date End Date Carmela Landeros MD [address] [place] [address] PCP - General Family Medicine 03/01/21 Tae Urbina MD Consulting Physician Nephrology 12/22/18 José Reyez MD Consulting Physician Pulmonary Disease 12/22/18 Dr. Levar Oates MD [address] [place] [address] Psychiatrist 09/30/24 documented as of this encounter
--- OUTSIDE RECORDS SUMMARY | 2025-02-10 17:47 | XMS_ITS | Encounter Summary ---
Author Organization [employer] Address 75 [facility] 7 [place] [address] Care Team Providers Care Senior Datastage Developer Name Role Phone Carmela Landeros MD Primary Care Provider [phone] Reason for Visit * Reason Onset Date Comments Nurse Triage 01/15/2024 Encounter Details Date Type Department Care Team ([facility] st Contact Info) Description 01/15/2024 Telephone [facility] [address] [place] [address] Carmela Landeros MD [address] [place] [address] Nurse Triage Social History Tobacco Use Types [...] encounter Miscellaneous Notes * Telephone Encounter - Colette Anderson RN - 01/15/2024 2:17 PM EDT Lina the RN from [facility] calling to report vitals BP 154/76 with a Headache. Called [facility] Nurse backLina. No answer. Left message on voicemail that I was returning call from [facility]: Pt. And that I would reach out to pt. Called pt. Via [employer] chief design drafter [id number] Riddhi. [phone] chief design drafter states there was a problem dialing that number. Smog Technician tried x2 and got same response. Smog Technician called other number - Phone kept ringing but, did not go to voice mail. Smog Technician called phone number again and it just kept ringing. Called back [facility] [place] nurse, to confirm pt. Phone number [phone] - welding machine operator/tender came on line stating-The person you are calling is not accepting calls at this time, please try your call again later. Smog Technician called back x2 and same message came on phone number. Will send this note to team nurses to reach out to pt. * Telephone Encounter - Niko Huynh - 01/15/2024 1:52 PM EDT Symptom: High Blood Pressure - Caller Reports Outcome: Schedule a same-day appointment or talk to a nurse or provider today Reason: Caller denied all higher acuity questions The caller accepted this outcome Lina the RN from [facility] calling to report vitals BP 154/76 with a Headache documented in this encounter Plan of Treatment Upcoming Encounters Date Type Department Care Team (Late st Contact Info) Description 04/06/2025 2:15 PM EST Clinical Support [facility] MED & PEDS [address] [place] [address] Kendal Rothman, RN [address] [place] [address] documented as of this encounter Visit Diagnoses Not on filedocumented in this encounter Additional Health Concerns Assessment Noted Time PHQ-9 Depression Total Score: 4 02/20/20 23 10:24 AM EDT documented as of this encounter Care Teams Senior Datastage Developer Relationship Specialty Start Date End Date Carmela Landeros MD [address] [place] [address] PCP - General Family Medicine 03/01/21 Tae Urbina MD Consulting Physician Nephrology 12/22/18 José Reyez MD Consulting Physician Pulmonary Disease 12/22/18 Dr. Levar Oates MD [address] [place] [address] Psychiatrist 09/30/24 documented as of this encounter
--- OUTSIDE RECORDS SUMMARY | 2025-02-10 17:47 | XMS_ITS | Encounter Summary ---
Author Organization [employer] Address 75 [facility] 7 [place] [address] Care Team Providers Care Hat Stock Laminating Machine Operator Name Role Phone Carmela Landeros MD Primary Care Provider Reason for Visit * Reason Comments Med Refill Encounter Details Date Type Department Care Team ([facility] st Contact Info) Description 05/28/2024 Refill [facility] MEDICINE [address] [place] [address] Carmela Landeros MD [address] [place] [address] Hyperlipidemia, unspecified hyperlipidemia type Social History Tobacco Use Types Packs/Day [...] Description 04/06/2025 2:15 PM EST Clinical Support [facility] 505 [place] [address] Kendal Rothman, VENICE 505 [place] [address] documented as of this encounter Visit Diagnoses Diagnosis Hyperlipidemia, unspecified hyperlipidemia type documented in this encounter Additional Health Concerns Assessment Noted Time PHQ-9 Depression Total Score: 16 024 3:27 PM EDT documented as of this encounter Care Teams Hat Stock Laminating Machine Operator Relationship Specialty Start Date End Date Carmela Landeros MD [address] [place] [address] PCP - General Family Medicine 03/01/21 Tae Urbina MD Consulting Physician Nephrology 12/22/18 José Reyez MD Consulting Physician Pulmonary Disease 12/22/18 Dr. Levar Oates MD [address] [place] [address] Psychiatrist 09/30/24 documented as of this encounter
--- OUTSIDE RECORDS SUMMARY | 2025-02-10 17:47 | XMS_ITS | Encounter Summary ---
Author Organization [employer] Address [address] [place] [address] 7 [place] [address] Care Team Providers Care Chief Gauger Name Role Phone Carmela Landeros MD Primary Care Provider [phone] Encounter Details Date Type Department Care Team ([facility] Contact Info) Description 11/07/2022 Abstract [facility] MED & PEDS [address] [place] [address] Carmela Landeros MD [address] [place] [address] Social History Tobacco Use Types Packs/Day Years [...] Upcoming Encounters Date Type Department Care Team ([facility] Contact Info) Description 04/06/2025 2:15 PM EST Clinical Support [facility] MED & PEDS [address] [place] [address] Kendal Rothman, VENICE [address] [place] [address] documented as of this encounter Procedures Procedure Name Priority Date/Time Associated Diagnosis Comments EXTERNAL BREAST BIOPSY Routine 11/07/2022 8:37 AM EDT MAMMOGRAPHY Routine 11/07/2022 8:36 AM EDT documented in this encounter Results * External Breast Biopsy (11/07/2022 8:37 AM EDT) Anatomical Region Laterality Modality Breast N/A Mammography Narrative 11/07/2022 8:37 AM EDT Benign left breast stereotactic biopy Historical Provider IMG BI PROCEDURES Final R esult * Hm Mammography (11/07/2022 8:36 AM EDT) HM Mammogram normal Anatomical Region Laterality Modality Other Narrative 11/07/2022 8:36 AM EDT Benign stereotactic biopsy of left breast Historical Provider HEALTH MAINTENANCE Final Result documented in this encounter Visit Diagnoses Not on filedocumented in this encounter Additional Health Concerns Assessment Noted Time PHQ-9 Depression Total Score: 8 09/06/19 23 2:26 PM EDT documented as of this encounter Care Teams Chief Gauger Relationship Specialty Start Date End Date Carmela Landeros MD [address] [place] [address] PCP - General Family Medicine 03/01/21 Tae Urbina MD Consulting Physician Nephrology 12/22/18 José Reyez MD Consulting Physician Pulmonary Disease 12/22/18 Dr. Levar Oates MD [address] [place] [address] Psychiatrist 09/30/24 documented as of this encounter
--- OUTSIDE RECORDS SUMMARY | 2025-02-10 17:47 | XMS_ITS | Encounter Summary ---
Author Organization [employer] Address 75 [facility] 7 [place] [address] Care Team Providers Care Housecleaner Floor Name Role Phone Carmela Landeros MD Primary Care Provider [phone] Reason for Visit * Reason Onset Date Comments Med Refill 01/23/2024 Encounter Details Date Type Department Care Team (Late st Contact Info) Description 01/23/2024 Telephone [facility]ICINE [address] [place] [address] Carmela Landeros MD [address] [place] [address] Med Refill Social History Tobacco Use Types [...] encounter Miscellaneous Notes * Telephone Encounter - Margueritejosemarelyaudrey Guillen Jenny - 01/23/2024 10:30 AM EDT TC from pt requesting medication refill. Medications needing refill : oxyCODONE-acetaminophen (Percocet) 5-325 MG tablet To be sent to: [facility] documented in this encounter Plan of Treatment Upcoming Encounters Date Type Department Care Team (Late st Contact Info) Description 04/06/2025 2:15 PM EST Clinical Support [facility] MED & PEDS 505 [place] [address] Kendal Rothman, VENICE [address] [place] [address] documented as of this encounter Visit Diagnoses Not on filedocumented in this encounter Additional Health Concerns Assessment Noted Time PHQ-9 Depression Total Score: 4 02/20/20 23 10:24 AM EDT documented as of this encounter Care Teams Housecleaner Floor Relationship Specialty Start Date End Date Carmela Landeros MD [address] [place] [address] PCP - General Family Medicine 03/01/21 Tae Urbina MD Consulting Physician Nephrology 12/22/18 José Reyez MD Consulting Physician Pulmonary Disease 12/22/18 Dr. Levar Oates MD [address] [place] [address] Psychiatrist 09/30/24 documented as of this encounter
--- OUTSIDE RECORDS SUMMARY | 2025-02-10 17:47 | XMS_ITS | Encounter Summary ---
Author Organization [employer] Address [address] [place] [address] 7 [place] [address] Care Team Providers Care Medical Grade Shoemaker Name Role Phone Carmela Landeros MD Primary Care Provider [phone] Reason for Visit * Reason Comments Med Refill Encounter Details Date Type Department Care Team ([facility] Contact Info) Description 01/20/2023 Refill [facility] MED & PEDS [address] [place], [place] [phone] Kyleigh Scales MD [address] [place] [address] Social History Tobacco Use Types Packs/Day Years [...] Upcoming Encounters Date Type Department Care Team ([facility] Contact Info) Description 04/06/2025 2:15 PM EST Clinical Support [facility] MED & PEDS [address] [place], [place] [phone] Kendal Rothman RN 505 [place], [place] [phone] documented as of this encounter Visit Diagnoses Not on filedocumented in this encounter Additional Health Concerns Assessment Noted Time PHQ-9 Depression Total Score: 8 09/06/19 23 2:26 PM EDT documented as of this encounter Care Teams Medical Grade Shoemaker Relationship Specialty Start Date End Date Carmela Landeros MD [address] [place] [address] PCP - General Family Medicine 03/01/21 Tae Urbina MD Consulting Physician Nephrology 12/22/18 José Reyez MD Consulting Physician Pulmonary Disease 12/22/18 Dr. Levar Oates MD [address] [place] [address] Psychiatrist 09/30/24 documented as of this encounter
--- OUTSIDE RECORDS SUMMARY | 2025-02-10 17:47 | XMS_ITS | Clinical Summary ---
Author Organization [facility], Address [address] [place] [address] [place] [address] Phone Care Team Providers Care Resin Remover Name Role Phone Carmela Landeros MD Primary Care Provider [phone] Allergies No known active allergies Medications albuterol HFA (ProAir HFA) 108 (90 Base) MCG/ACT inhaler Comments: Filled Date: Feb 04 2019 12:00AM Patient Notes: INHALE 2 PUFFS EVERY 6 HOURS NEEDED Duration: 02/04/2019 Active cholecalciferol (VITAMIN D-3) 50 MCG (2000 UT) capsule Comments: Filled Date: Feb 10 2019 12:00AM Patient Notes: TK 1 C PO D Duration: 11/04/2018 Active atorvastatin (LIPITOR) 20 MG tablet Comments: Filled Date: Feb 04 2019 12:00AM Patient Notes: TK 1 T PO QD Duration: 09/08/2018 Active fluticasone HFA (Flovent HFA) 110 MCG/ACT inhaler Comments: Filled Date: Feb 04 2019 12:00AM Patient Notes: INHALE 2 PUFFS TWICE DAILY. RINSE MOUTH AFTER USING. Duration: 02/04/2019 Active furosemide (LASIX) 20 MG tablet Comments: Filled Date: Feb 04 2019 12:00AM Patient Notes: TK 1 T PO BID Duration: 10/02/2018 Active gabapentin (NEURONTIN) 300 MG capsule Comments: Filled Date: Feb 10 2019 12:00AM Patient Notes: TK 1 C PO TID Duration: 09/08/2018 Active hydrOXYzine (VISTARIL) 25 MG capsule Comments: Filled Date: Jan 27 2019 12:00AM Patient Notes: TK ONE C PO BID PRF ANXIETY Duration: 01/27/2019 Active repaglinide (PRANDIN) 0.5 MG tablet Comments: Filled Date: Feb 17 2019 12:00AM Patient Notes: TK 1 T PO TID 15 TO 30 MIN B MEALS Duration: 09/22/2018 Active risperiDONE (RisperDAL) 0.5 MG tablet Comments: Filled Date: Jan 27 2019 12:00AM Patient Notes: TK 1 T PO HS Duration: 01/27/2019 Active sertraline (ZOLOFT) 100 MG tablet Comments: Filled Date: Jan 29 2019 12:00AM Patient Notes: TK 1 AND 1/2 TS PO Q NIGHT Duration: 01/27/2019 Active Dulaglutide (Trulicity) 1.5 MG/0.5ML solution pen-injector Inject 1.5 mg under the skin per week Active Active Problems Problem Noted Date Diagnosed Date Stage 3b chronic kidney disease 12/23/2023 Type 2 diabetes mellitus 04/16/2021 Hyponatremia Hyperkalemia Hypertension Hypothyroidism Serum creatinine above reference range Encounters Date Type Department Care Team Description 01/14/2025 Office Communication [facility] [address] [place] [address] Coni Newman 12/27/2024 2:30 PM EDT Office Visit [facility] [address] [place] [address] Ayo Burgos MD 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) 12/21/2024 Documentation Only [facility] [address] [place] [address] TrentConi curry 12/21/2024 Documentation Only [facility] [address] [place] [address] Trent, Coni 12/21/2024 Documentation Only [facility] [place] [address] [place] [address] TrentJoe curryica 12/21/2024 Documentation Only [facility] [address] [place] [address] Coni Newman 12/21/2024 Documentation Only [facility] [address] [place] [address] Coni Newman 12/21/2024 Documentation Only [facility] [address] [place] [address] Coni Newman from Last 3 Months Immunizations Immunization Administration Dates Next Due Hepatitis B 09/26/2020,05/27/2017,04/22/2017 Influenza, MDCK, PF, Quadrivalent 04/02/2021 Influenza, Quadrivalent, Pre servative Free 02/12/2023,02/28/2022,03/14/2021,02/17,05/28/2018,03/12/2017 Influenza, Quadrivalent, Wit h Preservative 04/16/2019,03/01/2016 Mary SARS-COV-2 08/04/2020 Moderna SARS-COV-2 05/22/2021 Pneumococcal Conjugate Pcv 20 02/19/2023 Pneumococcal Polysaccharide 06/08/2015 Shingrix 01/01/2021,10/27/2020 Tdap 02/18/2020 Social History Tobacco Use Types Packs/Day Years Used Date Smoking Tobacco: Former Alcohol Use Standard Drinks/Week Comments No 0 (1 standard drink = 0.6 oz pur e alcohol) Comments Unknown Sex and Gender Information Value Date Recorded Sex Assigned at Not on file Legal Sex Female 4:33 PM EST Gender Identity Not on file Sexual Orientation Not on file Last Filed Vital Signs Vital Sign Reading Time Taken Comments Blood Pressure 108/69 12/27/2024 2:58 PM EDT Pulse 85 12/27/2024 2:58 PM EDT Temperature - - Respiratory Rate - - Oxygen Saturation - - Inhaled Oxygen Concentration - - Weight 76.2 kg (168 lb) 10/09/2021 3:24 PM EDT Height 149.9 cm (4' 11 ) 03/17/2019 12:00 PM EDT Body Mass Index 33.93 03/17/2019 12:00 PM EDT Plan of Treatment Health Maintenance Due Date Last Done Comments Breast Cancer Screening 1960 Colorectal Cancer Screening: Annual FOBT 08/09/2007 Colorectal Cancer Screening: Colonoscopy 08/09/2007 Colorectal Cancer Screening: Sigmoidoscopy 08/09/2007 Diabetes: Ophthalmology Exam 08/23/2019 Diabetes: Pedal Pulse Checked 08/23/2019 Diabetes: Sensory Foot Exam 08/23/2019 Diabetes: Visual Foot Exam 08/23/2019 Diabetes: Hemoglobin A1C 01/07/202510/07/2 025, 02/23/2024, 08/21/2023, Additional history exists Influenza Vaccine (#1) 2025 4, 02/12/2023, 02/28/2022, Additional history exists Hepatitis B Vaccine Aged Out 09/26/2020, 05/27/2017, 04/22/2017 No longer eligible based on patient's age to complete this topic Pneumococcal Vaccine: 50+ Years Completed 02/19/2023, 06/08/2015 Pneumococcal Vaccine: Peds (0 to 5 Years) and At-Risk Patients (6 to 49 Years) Discontinued 02/19/2023, 06/08/2015 Procedures Procedure Name Priority Date/Time Associated Diagnosis Comments PTH, INTACT Routine 12/08/2024 3:03 PM EDT FERRITIN Routine 12/08/2024 3:03 PM EDT VITAMIN D 25 HYDROXY Routine 12/08/2024 3:03 PM EDT PROTEIN / CREATININE RATIO, URINE Routine 12/08/2024 3:03 PM EDT IRON PANEL (FE, TIBC, TSAT) Routine 12/08/2024 3:03 PM EDT RENAL FUNCTION PANEL Routine 12/08/2024 3:03 PM EDT URINALYSIS WITH MICROSCOPIC Routine 12/08/2024 3:03 PM EDT MICROSCOPIC EXAMINATION - DO NOT USE Routine 12/08/2024 3:03 PM EDT HEMOGLOBIN A1C Routine 04/15/2023 3:03 PM EST Renal disorder due to type 2 diabetes mellitus <Diabetic nephropathy> (HCC) from Last 3 Months or Most Recently Relevant to Health Maintenance Results * Microscopic Examination (12/08/2024 3:03 PM EDT) WBC, Urine 0-5 0 - 5 /hpf [facility] RBC, Urine 0-2 0 - 2 /hpf [facility] Squamous Epithelial, Urine 0-10 0 - 10 /hpf [facility] Casts None seen None seen /lpf [facility] Bacteria, Urine Few None seen/Few [facility] 12/08/2024 3:03 PM EDT 12/08/2024 Tae Urbina MD LAB MICROBIOLOGY - [facility] Final Result [facility] [address] [place] [address] * Iron Panel (Fe, TIBC, TSAT) (12/08/2024 3:03 PM EDT) TIBC 277 250 - 450 ug/dL [facility] UIBC 230 118 - 369 ug/dL [facility] Iron 47 27 - 139 ug/dL [facility] Iron Saturation (TSat) 17 15 - 55 % [facility] 12/08/2024 3:03 PM EDT 12/08/2024 Tae Urbina MD LAB BLOOD ORDERABLES Final Resu lt [facility] [address] [place] [address] * Protein, Total, Random Urine w/Creatinine (Protein/Creat Ratio) (12/08/2024 3:03 PM EDT) Creatinine, Ur 113.4 Not Estab. mg/dL [facility] Protein, Ur 13.5 Not Estab. mg/dL [facility] Urine Protein/Creatin ine Ratio 119 0 - 200 mg/g creat [facility] 12/08/2024 3:03 PM EDT 12/08/2024 Tae Urbina MD LAB URINE ORDERABLES Final Resu lt Performing Organization Address City/[facility]/ZIP Co de Phone Number [facility] [place] [address] [place] [address] * Vitamin D 25 Hydroxy (12/08/2024 3:03 PM EDT) Vitamin D, 25-OH, Total 40.0 30.0 - 100.0 ng/mL [facility] Comment: Vitamin D deficiency has been defined by the [place] [employer] and an Endocrine Society practice guideline as a level of serum 25-OH vitamin D less than 20 ng/mL (1,2). The Endocrine Society went on to further define vitamin D insufficiency as a level between 21 and 29 ng/mL (2). 1. IOM ([place] of [employer]). 2010. Dietary reference intakes for calcium and D. [place]: The National Academies Press. 2. Monty MF, Leonard BOCANEGRA, Mimi NORIEGA, et al. Evaluation, treatment, and prevention of vitamin D deficiency: an Endocrine Society clinical practice guideline. JCEM. 2011 Nov; 96(7):1911-30. 12/08/2024 3:03 PM EDT 12/08/2024 Tae Urbina MD LAB BLOOD ORDERABLES Final Resu lt [facility] [place] [address] [place] [address] * (ABNORMAL) Urinalysis with microscopic (12/08/2024 3:03 PM EDT) Pathologist [facility] Specific [place], Urine 1.024 1.005 - 1.030 [facility] [phone] pH Urine 6.0 5.0 - 7.5 [facility] Color, Urine Yellow Yellow [facility] Appearance Urine Clear Clear [facility] [place] WBC Esterase Urine 1+(A) Negative [facility] Protein, Ur Trace Negative/Tra ce [facility] Glucose, Ur Negative Negative [facility] Ketones, Urine Negative Negative [facility] [place] Blood Urine Negative Negative [facility] Bilirubin Urine Negative Negative [facility] [place] [phone] Urobilinogen Urine 0.2 0.2 - 1.0 mg/dL [facility] Nitrite, Urine Negative Negative [facility] [place] Microscopic Examination See below: [facility] Comment:Microscopic was andres cated and was performed. 12/08/2024 3:03 PM EDT 12/08/2024 us Tae Urbina MD LAB URINE ORDERABLES Final Resu lt [facility] [place] [address] [place] [address] * PTH, Intact (12/08/2024 3:03 PM EDT) Pathologist [facility] PTH 22 15 - 65 pg/mL [facility] 12/08/2024 3:03 PM EDT 12/08/2024 Tae Urbina MD LAB BLOOD ORDERABLES Final Resu lt [facility] [address] [place] [address] * (ABNORMAL) Ferritin (12/08/2024 3:03 PM EDT) Ferritin 272(H) 15 - 150 ng/mL [facility] 12/08/2024 3:03 PM EDT 12/08/2024 Tae Urbina MD LAB BLOOD ORDERABLES Final Resu lt Performing Organization Address City/[facility]/ZIP Co de Phone Number [facility] [address] [place] [address] * (ABNORMAL) Renal Function Panel (12/08/2024 3:03 PM EDT) Glucose 247(H) 70 - 99 mg/dL [facility] BUN 21 8 - 27 mg/dL [facility] Creatinine 1.42(H) 0.57 - 1.00 mg/dL [facility] eGFR CKD-EPI CR 2020 41(L) >59 mL/min/1.7 3 [facility] BUN/Creatinine Ratio 15 12 - 28 [facility] Sodium 135 134 - 144 mmol/L [facility] Potassium 5.1 3.5 - 5.2 mmol/L [facility] Chloride 99 96 - 106 mmol/L [facility] Bicarbonate (CO2) 21 20 - 29 mmol/L [facility] Calcium 9.5 8.7 - 10.3 mg/dL [facility] Albumin 4.3 3.9 - 4.9 g/dL [facility] Phosphorus 4.3 3.0 - 4.3 mg/dL [facility] 12/08/2024 3:03 PM EDT 12/08/2024 Tae Urbina MD LAB BLOOD ORDERABLES Final Resu lt Performing Organization Address [facility] Co de Phone Number [facility] [place] [address] [place] [address] * (ABNORMAL) Hemoglobin A1c (04/15/2023 3:03 PM EST) Hemoglobin A1C 8.6(H) (4.0-5.6) % [facility] Comment: MONITORING: In known diabetic patients, hemoglobin A1c targets should be discussed with health care provider. DIAGNOSTIC USE: The [place] Diabetes Association (ADA) and the World Health Organization (WHO) recommend the use of HbA1c to diagnose diabetes using a threshold of 6.5%. Patients who have an HbA1c between 5.7% and 6.4% are considered at increased risk for developing diabetes in the future. CAUTION: Falsely low HbA1c results may be observed in patients with hemolytic anemia, homozygous forms of abnormal hemoglobin (e.g. SS, CC, SC), , recent blood loss or hemoglobin F greater than 7%. Fructosamine may be used as an alternate test in these cases. REFERENCE: ADA: Standards of Medical Care in Diabetes 2020, The Journal of Clinical and Applied Research and Education Volume 43, Supplement 1 Testing performed or reported by [facility], a Service of [facility], [address] [place] [address] Yaron Frances MD, Director Of Hotel [facility]# [id number] Blood specimen (specimen) Venous blood / Unknown 04/15/2023 3:03 PM EST 04/15/2023 3:05 PM EST us Ayo Burgos MD LAB BLOOD ORDERABLES Final Re sult Performing Organization Address City/[facility]/ZIP Co de Phone Number [facility] from Last 3 Months or Most Recently Relevant to Health Maintenance Insurance Medicaid [place] [facility] ([id number]) Care Teams Resin Remover Relationship Specialty Start Date End Date Carmela Landeros MD [address] [place] [address] PCP - General Family Medicine 12/18/20
--- OUTSIDE RECORDS SUMMARY | 2025-02-10 17:47 | XMS_ITS | Encounter Summary ---
Author Organization [facility] Address [address] [place] [address] Phone Care Team Providers Care Treatment Plant Operator Name Role Phone Carmela Landeros MD Primary Care Provider [phone] Encounter Details Date Type Department Care Team (Late st Contact Info) Description 08/25/2023 Documentation Only [facility] [place], [address] [place] [address] Coni Newman [address] [place] [address] Social History Tobacco Use Types [...] on filedocumented in this encounter Care Teams Treatment Plant Operator Relationship Specialty Start Date End Date Carmela Landeros MD [address] [place] [address] PCP - General Family Medicine 12/18/20 documented as of this encounter
--- OUTSIDE RECORDS SUMMARY | 2025-02-10 17:47 | XMS_ITS | Encounter Summary ---
Author Organization [employer] Address [address] [place] [address] Care Team Providers Care Price Accuracy Supervisor Name Role Phone Carmela Landeros MD Primary Care Provider [phone] Encounter Details Date Type Department Care Team (Late Contact Info) Description 11/25/2022 Abstract [facility] ADULT DENTAL [address] [place], [place] [phone] William Zhou, MICHAEL [address] [place] [address] Social History Tobacco Use Types Packs/Day Years [...] Encounters Date Type Department Care Team (Late Contact Info) Description 04/06/2025 2:15 PM EST Clinical Support [facility] CHC MED & PEDS [address] [place] [address] Kendal Rothman, RN [address] [place], [place] [phone] documented as of this encounter Visit Diagnoses Not on filedocumented in this encounter Additional Health Concerns Assessment Noted Time PHQ-9 Depression Total Score: 8 09/06/19 23 2:26 PM EDT documented as of this encounter Care Teams Price Accuracy Supervisor Relationship Specialty Start Date End Date Carmela Landeros MD [address] [place] [address] PCP - General Family Medicine 03/01/21 Tae Urbina MD Consulting Physician Nephrology 12/22/18 José Reyez MD Consulting Physician Pulmonary Disease 12/22/18 Dr. Levar Oates MD [address] [place] [address] Psychiatrist 09/30/24 documented as of this encounter
--- OUTSIDE RECORDS SUMMARY | 2025-02-10 17:47 | XMS_ITS | Encounter Summary ---
Author Organization [facility] Address [address] [place] [address] Phone Care Team Providers Care Rn Homecare Name Role Phone Carmela Landeros MD Primary Care Provider [phone] Encounter Details Date Type Department Care Team (Late st Contact Info) Description 12/21/2024 Documentation Only [facility] [place], [address] [place] [address] Coni Newman [address] [place] [address] Social History Tobacco Use Types [...] on filedocumented in this encounter Care Teams Rn Homecare Relationship Specialty Start Date End Date Carmela Landeros MD [address] [place] [address] PCP - General Family Medicine 12/18/20 documented as of this encounter
--- OUTSIDE RECORDS SUMMARY | 2025-02-10 17:47 | XMS_ITS | Encounter Summary ---
Author Organization [employer] Address [address] [place] [address] [place] [address] Care Team Providers Care Hospice Coordinator Name Role Phone Carmela Landeros MD Primary Care Provider [phone] Reason for Visit * Reason Comments Med Refill Encounter Details Date Type Department Care Team ([facility] st Contact Info) Description 12/01/2024 Refill [facility] CHC MED & PEDS [address] [place], [place] [phone] Lidia Mcdaniel MD [address] [place] [address] Type 2 diabetes mellitus with hyperglycemia, unspecified whether intermediate insulin use ([facility]) Social History Tobacco Use Types Packs/Day Years [...] 04/06/2025 2:15 PM EST Clinical Support [facility] MED & PEDS [address] [place] [address] Kendal Rothman, VENICE [address] [place] [address] documented as of this encounter Visit Diagnoses Diagnosis Type 2 diabetes mellitus with hyperglycemia, unspecified whether intermediate card tender insulin use ([facility]) documented in this encounter Additional Health Concerns Assessment Noted Time PHQ-9 Depression Total Score: 16 024 3:27 PM EDT documented as of this encounter Care Teams Hospice Coordinator Relationship Specialty Start Date End Date Carmela Landeros MD [address] [place] [address] PCP - General Family Medicine 03/01/21 Tae Urbina MD Consulting Physician Nephrology 12/22/18 José Reyez MD Consulting Physician Pulmonary Disease 12/22/18 Dr. Levar Oates MD [address] [place] [address] Psychiatrist 09/30/24 documented as of this encounter
--- OUTSIDE RECORDS SUMMARY | 2025-02-10 17:47 | XMS_ITS | Encounter Summary ---
Author Organization [employer] Address [address] [facility] [address] [place] [address] Care Team Providers Care Ingredient Scaler Name Role Phone Carmela Landeros MD Primary Care Provider [phone] Reason for Visit * Reason Onset Date Comments Med Refill 11/10/2024 Encounter Details Date Type Department Care Team (Late st Contact Info) Description 11/10/2024 Telephone [facility] MEDICINE [address] [place] [address] Carmela Landeros MD [address] [place] [address] Med Refill Social History Tobacco Use Types [...] * Telephone Encounter - Lamar Pimentel - 11/10/2024 11:19 AM EDT TC from pt requesting medication refill. Medications needing refill : oxyCODONE-acetaminophen (Percocet) 5-325 MG tablet To be sent to: [id number] - [place], [place] - [address] [facility] documented in this encounter Plan of Treatment Upcoming Encounters Date Type Department Care Team (Late st Contact Info) Description 04/06/2025 2:15 PM EST Clinical Support [facility] MED & PEDS [address] [place] [address] Kendal Rothman, VENICE [address] [place] [address] documented as of this encounter Visit Diagnoses Not on filedocumented in this encounter Additional Health Concerns Assessment Noted Time PHQ-9 Depression Total Score: 16 024 3:27 PM EDT documented as of this encounter Care Teams Ingredient Scaler Relationship Specialty Start Date End Date Carmela Landeros MD [address] [place] [address] PCP - General Family Medicine 03/01/21 Tae Urbina MD Consulting Physician Nephrology 12/22/18 José Reyez MD Consulting Physician Pulmonary Disease 12/22/18 Dr. Levar Oates MD [address] [place] [address] Psychiatrist 09/30/24 documented as of this encounter
--- OUTSIDE RECORDS SUMMARY | 2025-02-10 17:47 | XMS_ITS | Encounter Summary ---
Author Organization [email or web address] Address [address] [facility] [address] [place] [address] Care Team Providers Care Automatic Pinsetter Adjuster Name Role Phone Carmela Landeros MD Primary Care Provider [phone] Reason for Visit * Reason Onset Date Comments Nurse Triage 07/26/2024 Encounter Details Date Type Department Care Team ([facility] st Contact Info) Description 07/26/2024 Telephone [facility] MEDICINE [address] [place] [address] Carmela Landeros MD [address] [place] [address] Nurse Triage Social History Tobacco Use Types [...] encounter Miscellaneous Notes * Telephone Encounter - Karon Fiore RN - 07/26/2024 12:54 PM EST Triage call to Pt with [facility] [place] [id number] Ab[place] Pt reports a fall down some stairs due to the shoes being worn. Pt stays at adult foster care and reports the nurse there took a look at injuries and recommended follow up. Pt reports this happened 07/23/24. Pt is very vague in regards to answering questions for triage. Pt reports right arm was injured and left side of head was injured . Pt reports right arm has no open areas but, has some open areas. Pt reports ability to move right arm is unimpaired. Pt reports a large bump on left side of head as well as some scrapes. Unable to discern if areas were cleaned at time of fall. Pt denies any dizziness, loss of speech or loss of consciousness. Pt reports ice was applied at time of fall. Pt is advised to seek evaluation at ED due to nature of injury and unsure of accuracy of triage information. Pt agrees with this disposition and wants to go by ambulance to ED. Advised to ask assist at adult day care. Pt agrees. Multiple (2) protocols were used on this call. Disposition for Call: Go to ED/UCC Now (or to Office with PCP Approval) Protocol Used: Head Injury (Adult) Protocol-Based Disposition: Go to ED/UCC Now (or to Office with PCP Approval) Positive Triage Question: * Large swelling or bruise (> 2 inches or 5 cm) * All higher-acuity triage questions were negative Care Advice Discussed: * Use a Cold Pack for Pain, Swelling, or Bruising * Reassurance and Education - Small Cut or Scrape * Clean the Wound * Antibiotic Ointment for a Cut or Scrape * Reasons To Call Back - Dirt in the wound persists after scrubbing - Looks infected (pus, redness) - Doesn't heal within 10 days - You become worse Protocol Used: Arm Injury (Adult) Protocol-Based Disposition: See in Office or Video Visit Today Video visit not offered Positive Triage Question: * Large swelling or bruise (> 2 inches or 5 cm) * All higher-acuity triage questions were negative Care Advice Discussed: * Use a Cold Pack for Pain, Swelling, or Bruising * Reassurance and Education - Small Cut or Scrape * Cleaning a Cut or Scrape * Antibiotic Ointment for a Cut or Scrape * Dressing a Cut or Scrape * Liquid Skin Bandage * Reasons To Call Back - Dirt in the wound persists after scrubbing - Looks infected (pus, redness) - Doesn't heal within 10 days - You become worse * Telephone Encounter - Tamera Evangelista - 07/26/2024 11:58 AM EST Symptom: Arm Injury Outcome: Schedule an urgent appointment (within 4 hours) or talk to a nurse or provider soon Reason: Getting worse The caller accepted this outcome. Patient Cell phone [phone] Patients lives in Adult foster care phone number provided if patient don't answer [phone] documented in this encounter Plan of Treatment Upcoming Encounters Date Type Department Care Team ([facility] st Contact Info) Description 04/06/2025 2:15 PM EST Clinical Support [facility] MED & PEDS [address] [place] [address] Kendal Rothman, RN [address] [place] [address] documented as of this encounter Visit Diagnoses Not on filedocumented in this encounter Additional Health Concerns Assessment Noted Time PHQ-9 Depression Total Score: 16 024 3:27 PM EDT documented as of this encounter Care Teams Automatic Pinsetter Adjuster Relationship Specialty Start Date End Date Carmela Landeros MD [address] [place] [address] PCP - General Family Medicine 03/01/21 Tae Ubrina MD Consulting Physician Nephrology 12/22/18 José Reyez MD Consulting Physician Pulmonary Disease 12/22/18 Dr. Levar Oates MD [address] [place] [address] Psychiatrist 09/30/24 documented as of this encounter
--- OUTSIDE RECORDS SUMMARY | 2025-02-10 17:47 | XMS_ITS | Encounter Summary ---
Author Organization [employer] Address [address] [facility] [address] [place] [address] Care Team Providers Care Payroll Officer Name Role Phone Carmela Landeros MD Primary Care Provider [phone] Encounter Details Date Type Department Care Team (Late st Contact Info) Description 04/16/2023 Abstract [facility] MEDICINE [address] [place] [address] Carmela Landeros MD [address] [place] [address] Social History Tobacco Use Types Packs/Day Years [...] Description 04/06/2025 2:15 PM EST Clinical Support [facility] MED & PEDS [address] [place] [address] Kendal Rothman, VENICE [address] [place] [address] documented as of this encounter Procedures Procedure Name Priority Date/Time Associated Diagnosis Comments COLONOSCOPY Routine 08/18/2017 documented in this encounter Results * Hm Colonoscopy (08/18/2017) Colonoscopy Normal Normal Narrative Kimberley Michael - 08/18/2017 Recommended 5 year follow up us Historical Provider HEALTH MAINTENANCE Final Result documented in this encounter Visit Diagnoses Not on filedocumented in this encounter Additional Health Concerns Assessment Noted Time PHQ-9 Depression Total Score: 4 02/20/20 23 10:24 AM EDT documented as of this encounter Care Teams Payroll Officer Relationship Specialty Start Date End Date Carmela Landeros MD [address] [place] [address] PCP - General Family Medicine 03/01/21 Tae Urbina MD Consulting Physician Nephrology 12/22/18 José Reyez MD Consulting Physician Pulmonary Disease 12/22/18 Dr. Levar Oates MD [address] [place] [id number] Psychiatrist 09/30/24 documented as of this encounter
--- OUTSIDE RECORDS SUMMARY | 2025-02-10 17:47 | XMS_ITS | Encounter Summary ---
Author Organization [employer] Address [address] [facility] [address] [place] [address] Care Team Providers Care Over The Road Driver Name Role Phone Carmela Landeros MD Primary Care Provider [phone] Reason for Visit * Reason Comments Med Refill Encounter Details Date Type Department Care Team ([facility] st Contact Info) Description 12/05/2024 Refill [facility] MED & PEDS [address] [place], [place] [id number] Carmela Landeros MD [address] [place] [address] Hyperlipidemia, unspecified hyperlipidemia type Social History Tobacco [...] Upcoming Encounters Date Type Department Care Team ([facility] st Contact Info) Description 04/06/2025 2:15 PM EST Clinical Support [facility] MED & PEDS [address] [place] [address] Kendal Rothman, VENICE [address] [place] [address] documented as of this encounter Visit Diagnoses Diagnosis Hyperlipidemia, unspecified hyperlipidemia type documented in this encounter Additional Health Concerns Assessment Noted Time PHQ-9 Depression Total Score: 16 024 3:27 PM EDT documented as of this encounter Care Teams Over The Road Driver Relationship Specialty Start Date End Date Carmela Landeros MD [address] [place] [address] PCP - General Family Medicine 03/01/21 Tae Urbina MD Consulting Physician Nephrology 12/22/18 José Reyez MD Consulting Physician Pulmonary Disease 12/22/18 Dr. Levar Oates MD [address] [place] [address] Psychiatrist 09/30/24 documented as of this encounter
--- OUTSIDE RECORDS SUMMARY | 2025-02-10 17:47 | XMS_ITS | Encounter Summary ---
Author Organization [employer] Address [address] [facility] 7 [place] [address] Care Team Providers Care Logistics Lead Name Role Phone Carmela Landeros MD Primary Care Provider [phone] Reason for Visit * Reason Onset Date Comments Med Refill 02/05/2024 Encounter Details Date Type Department Care Team (Late st Contact Info) Description 02/05/2024 Telephone [facility] MEDICINE [address] [place] [address] Carmela Landeros MD [address] [place] [address] Med Refill Social History Tobacco Use Types [...] encounter Miscellaneous Notes * Telephone Encounter - Ophelia Spicer LPN - 02/05/2024 9:36 AM EDT Medication was sent to [facility] #[id number] on 01/05/24 #90 with 2 refills. * Telephone Encounter - Hesham Neal - 02/05/2024 9:28 AM EDT TC from pt requesting medication refill. Medications needing refill: cholecalciferol VITAMIN D (Vitamin D-3) 50 MCG (1999) capsule To be sent to: [id number] - [place], [place] - [address] [facility] [facility] [address] documented in this encounter Plan of Treatment Upcoming Encounters Date Type Department Care Team ([facility] st Contact Info) Description 04/06/2025 2:15 PM EST Clinical Support [facility] MED & PEDS [address] [place] [address] Kendal Rothman, VENICE [address] [place] [address] documented as of this encounter Visit Diagnoses Not on filedocumented in this encounter Additional Health Concerns Assessment Noted Time PHQ-9 Depression Total Score: 4 02/20/20 23 10:24 AM EDT documented as of this encounter Care Teams Logistics Lead Relationship Specialty Start Date End Date Carmela Landeros MD [address] [place] [address] PCP - General Family Medicine 03/01/21 Tae Urbina MD Consulting Physician Nephrology 12/22/18 José Reyez MD Consulting Physician Pulmonary Disease 12/22/18 Dr. Levar Oates MD [address] [place] [address] Psychiatrist 09/30/24 documented as of this encounter
== END 2025-02-10 14:09 | disposition home or self-care (01) ==
LOC: HO.HPS 13:54
PROVIDERS: PCP Family Medicine; Visit Provider Internal Medicine
DX: R05.9 Cough, unspecified (principal); J45.909 Unspecified asthma, uncomplicated; J30.9 Allergic rhinitis, unspecified
CPT/HCPCS: 99213

== ENCOUNTER → 2025-02-10 13:53 | Outpatient (BNVA) | payer OTHER, SELFPAY | PROVIDERS: PCP Family Medicine; Visit Provider Internal Medicine | DX: J45.909 Unspecified asthma, uncomplicated (principal); R05.3 Chronic cough | CPT/HCPCS: 99212 ==